=== PATIENT | male | born 1940 | race Caucasian/White ===

== ENCOUNTER → 2019-04-04 | Day surgery (SDC) | payer MEDICARE ==
[2019-04-01 12:06] LABS: BASOPHILS % 0.4 % (0.0-1.0); EOSINOPHILS # (AUTO) 0.2 (0.0-0.4); EOSINOPHILS % 2.3 % (0.0-6.0); HEMATOCRIT 36.7 % (38.2-49.6); LYMPHOCYTES % 21.1 % (18.0-39.1); MEAN CORPUSCULAR HEMOGLOBIN 27.1 pg (28-32); MEAN CORPUSCULAR HGB CONC 32.7 g/dL (31-35); MONOCYTES # (AUTO) 0.8 (0.2-0.8); MONOCYTES % 8.3 % (4.4-11.3); NEUTROPHILS # (AUTO) 6.4 (2.1-6.9); NEUTROPHILS % 67.5 % (38.7-80.0); PLATELET COUNT 270 x10e3/uL (140-360); RED BLOOD COUNT 4.42 x10e6/uL (4.3-5.7); RED CELL DISTRIBUTION WIDTH 13.7 % (11.7-14.4)
[2019-04-01 12:37] LABS: ANION GAP 11.7 mmol/L (8-16); BLOOD UREA NITROGEN 13 mg/dL (7-26); BUN/CREATININE RATIO 14 (6-25); CALCIUM 9.4 mg/dL (8.4-10.2); CARBON DIOXIDE 27 mmol/L (22-29); CHLORIDE 105 mmol/L (98-107); CREATININE, SERUM 0.93 mg/dL (0.72-1.25); EST GLOMERULAR FILTRATION RATE > 60 ML/MIN (60-); GLUCOSE 132 mg/dL (74-118); POTASSIUM 4.7 mmol/L (3.5-5.1); SODIUM 139 mmol/L (136-145)
--- NOTE | 2019-04-01 12:58 | Diagnostic Imaging Report ---
EXAMINATION: CHEST 2 VIEWS INDICATION: Pre-operative COMPARISON: None FINDINGS: TUBES and LINES: None. LUNGS: The lung volumes are normal. No focal consolidation or pulmonary edema. PLEURA: No pleural effusion or pneumothorax. HEART AND MEDIASTINUM: The cardiomediastinal silhouette is normal in size and contour. Atherosclerotic calcifications of the thoracic aorta. BONES AND SOFT TISSUES: No acute fracture or dislocation. Degenerative changes of the visualized spine. UPPER ABDOMEN: No free air under the diaphragm. Moderate hiatal hernia. IMPRESSION: No focal pneumonia or pulmonary edema. Moderate hiatal hernia. Signed by: Mica Moore MD on 04/01/2019 12:55 PM
[~2019-04-04] MED LIST: AMLODIPINE BESYL5 MG PO; ASPIRIN81 MG PO; ATORVASTATIN CA20 MG PO; B&O 60MG R/S 60 MG SUPP PR ONE; DEXAMETHASONE SOD PHOS INJ 4 MG/ML VIAL ONE; FENTANYL CITRATE/PF 100MCG/2 ML INJ ONE; FINASTERIDE5 MG PO; FLOMAX0.4 MG PO; GENTAMICIN 80MG/NS 100 ML 200 ML IV ONE; IOPAMIDOL 610MG/1ML 300 MG/ML VIAL IV ONE; LIDOCAINE HCL 2% LOCAL INJ 5 ML SDV VIAL INJ ONE; LOSARTAN POTASS25 MG PO; METFORMIN HCL500 MG PO; METOPROLOL PO; ONDANSETRON HCL INJ 2MG/ML 2ML 2 MG/ML VIAL ONE; PANTOPRAZOLE SO40 MG PO; PIPER-TAZ 3.375 GM 50 ML ONE; PRADAXA150 MG PO; PROPOFOL IV EMULSION 10 MG/ML 20 ML VIAL ONE; SEVOFLURANE INHAL SOLN 250 ML PEN BTL ONE
--- OUTSIDE RECORDS SUMMARY | 2019-04-04 07:16 | XMS REPORT | Clinical Summary ---
Author Author [facility] Organization [facility] Address Unknown Phone Unavailable Care Team Providers Care Flight Engineer Manager Name Role Phone Asked, No Pcp PCP Unavailable Allergies No Known Allergies Medications End Date Status Medication Sig Dispensed Refills Start Date Active lansoprazole (PREVACID) Take 30 mg by 0 30 MG capsule mouth daily. Active terazosin (HYTRIN) 10 MG Take 10 mg by 0 capsule mouth nightly. Active metFORMIN (GLUCOPHAGE) Take 250 mg 0 500 mg tablet by mouth 2 (two) times a day with meals. Active atorvastatin (LIPITOR) 10 Take 10 mg by 0 MG tablet mouth daily. Active lisinopril Take 10 mg by 0 (PRINIVIL,ZESTRIL) 10 mg mouth daily. tablet Active warfarin (COUMADIN) 1 MG On MWF take 90 tablet 3 02/14/ tablet 2mg, 7 otherwise 3mg the rest of the days Active amIODarone (PACERONE) 200 TAKE 1 TABLET 90 tablet 0 03/05/201 MG tablet BY MOUTH 7 DAILY Active finasteride (PROSCAR) 5 TAKE 1 30 tablet 0 02/08/201 mg tablet TABLET(5 MG) 8 BY MOUTH DAILY Active Problems Problem Noted Date A-fib on coumadin 02/14/2017 CAD (coronary artery disease) 02/14/2017 T2DM (type 2 diabetes mellitus) 02/14/2017 Encounters Care Team Description Date Type Specialty [place]-Beatrice Sandoval MD 04/22/2018 Refill Internal Medicine after 04/03/2018 Family History Medical History Relation Name Comments GERD Father Diabetes Mother Relation Name Status Comments Father Mother Social History Date Tobacco Use Types Packs/Day Years Used Former Smoker Comments: quit in 1960s, smoked up to 1.5ppd since 14 yo Alcohol Use Drinks/Week oz/Week Comments Yes 5 drinks a week or so Sex Assigned at Date Recorded Not on file Industry Job Start Date Occupation Not on file Not on file Not on file Travel End Travel History Travel Start No recent travel history available. Last Filed Vital Signs Not on file Plan of Treatment Health Maintenance Due Date Last Done Comments DIABETIC RETINAL EYE EXAM 1940 DIABETIC FOOT EXAM 1950 SHINGLES VACCINES (#1) 1989 65+ PNEUMOCOCCAL VACCINE 2004 (1 of 2 - PCV13) INFLUENZA VACCINE 04/10/2019 Results Not on fileafter 04/03/2018 Insurance Type Payer Benefit Subscriber ID Effective Phone Address Plan / Dates Group [facility] MEDICARE AARP xxxxxxxxx 2017-P MEDICARE resent COMPLETE [facility] Advance Directives Patient has advance care planning documents on file. For more information, nehemiah purcell contact: Marcelo Sosa [address] [place] [address]
--- OUTSIDE RECORDS SUMMARY | 2019-04-04 07:16 | XMS REPORT ---
Author Author [facility] Address Unknown Phone Unavailable Care Team Providers Care Jackhammer Splitter Operator Name Role Phone JAMIE MENCHACA Unavailable Unavailable Payers Payer Name Policy Type Policy Number Effective Date Expiration Date Problems This patient has no known problems. Allergies, Adverse Reactions, Alerts This patient has no known allergies or adverse reactions. Medications This patient has no known medications. Results Test Description Test Time Test Comments Text Results Atomic Results Result Comments CHEST 2 VIEWS 2019-04-01 12:53:00 [place] [address] Patient Name: AMARI NUNEZ MR #: [id number] : 1940 Age/Sex: 78/M Req #: [id number] Adm Physician: Ordered by: JAMIE MENCHACA MD Report #: [id number] Location: OR Room/Bed: Procedure: [id number] DX/CHEST 2 VIEWS Exam Date: 04/01/19 Exam Time: 1205 REPORT STATUS: Signed EXAMINATION: CHEST 2 VIEWS INDICATION: Pre-operative COMPARISON: None FINDINGS: TUBES and LINES: None. LUNGS: The lung volumes are normal. No focal consolidation or pulmonary edema. PLEURA: No pleural effusion or pneumothorax. HEART AND MEDIASTINUM: The cardiomediastinal silhouette is normal in size and contour. Atherosclerotic calcifications of the thoracic aorta. BONES AND SOFT TISSUES: No acute fracture or dislocation. Degenerative changes of the visualized spine. UPPER ABDOMEN: No free air under the diaphragm. Moderate hiatal hernia. IMPRESSION: No focal pneumonia or pulmonary edema. Moderate hiatal hernia. Signed by: Dexter Moore MD on 04/01/2019 12:55 PM Dictated By: DEXTER MOORE MD [id number] Transcribed By: COOPER on 04/01/19 1255 COPY TO: JAMIE MENCHACA MD
[2019-04-04 11:45] VITALS: BP 156/74
--- NOTE | 2019-06-05 05:18 | Operative Report ---
DATE OF PROCEDURE: 04/04/2019 SURGEON: Bud Sanchez MD PREOPERATIVE DIAGNOSES: 1. Elevated PSA. 2. Incomplete bladder emptying. POSTOPERATIVE DIAGNOSES: 1. Elevated PSA. 2. Incomplete bladder emptying. 3. Urethral stricture disease. OPERATION PERFORMED: 1. Transrectal sonography interpretation, no radiologist present. 2. Interpretation of ultrasonographic guidance for needle biopsies of the prostate, but no radiologist present. 3. Transrectal needle biopsies of the prostate (surgery performed for the elevated PSA). 4. Cystourethroscopy with bilateral ureteral catheterization and retrograde ureteropyelography (surgery performed for the incomplete bladder emptying). 5. Interpretation of retrograde ureteropyelography. 6. Supervision of fluoroscopy, no radiologist present. 7. Cystourethroscopy with calibration and dilation of urethral stricture disease just distal to the external urinary sphincter. ANESTHESIA: General. COMPLICATIONS: None. CLINICAL SUMMARY: Emmanuel Rinaldi is a 78-year-old man with the above preoperative diagnoses. He has undergone prostate biopsies on five different occasions in the past without any diagnosis of cancer. The patient was brought for the above procedures. He is aware of the risks of bleeding, infection, injury to adjacent structures, need for additional procedures and elected to proceed. OPERATIVE PROCEDURE IN DETAIL: Informed consent was verified. Emmanuel Rinaldi was properly identified and was taken to the operating room and placed on the cystoscopy table in supine position. Anesthesia was uneventfully begun. The patient was then carefully gently repositioned in dorsal lithotomy position with over all pressure points well padded. Transrectal sonography was performed. Interpretation of transrectal sonography, real-time ultrasonography was performed and revealed the prostate size approximately 107 cc. There were calcifications noted on both sides of the prostate, left more prominent than the right side. There were no hypoechoic lesions to account for the preultrasound examination. That examination revealed a 50 g prostate that was indurated on the left side more than it was indurated on the right side, but it was abnormal bilaterally. There were no distinct nodules, but induration was present. With ultrasonographic guidance, the 18 needle biopsies of the prostate were taken. Three biopsies were taken at each of six locations. These were differentiated right versus left and base versus mid versus apex. The patient's genitalia were then prepared and draped in the usual sterile fashion. The cystoscope sheath with a visual obturator in place was atraumatically inserted. The patient's urethra was guided on a normal distal urethra to the bulbar region, where there was a stricture present just beyond the external urinary sphincter. We gently dilated across the stricture to the cystoscope sheath, thus calibrating and dilating it at 21-Indonesian. We then traversed through the large prostate. The prostatic urethra was long and very large with kissing lateral lobes with severe visual obstruction. We entered the patient's bladder and drained it. Panendoscopy of the urinary bladder revealed grade 2 trabeculations, but no tumors, no stones, and no diverticula normally positioned configured. Ureteral orifices were identified. An 8-Indonesian catheter was used to cannulate each ureter and retrograde ureteropyelograms were performed. Interpretation of retrograde ureteropyelography contrast was instilled in retrograde fashion bilaterally. There were no tumors and there were no stones. J-hooking was present bilateral. Unobstructed drainage was observed fluoroscopically. The patient's bladder was drained. Cystoscope was withdrawn. Belladonna and opium suppository were placed. The patient was uneventfully reversed from anesthesia and was taken to recovery room in stable condition. Explicit postoperative instructions were given and we will plan to follow the patient up in the office. Regardless, the patient based on the cystoscopic findings is in need of undergoing transurethral resection of the prostate. Bud Sanchez MD OH/MODL /[id number] cc: Jeanmarie Gill MD
== END | disposition home or self-care (01) ==
LOC: OR 07:14
PROVIDERS: ATTEND Urology
DX: R97.20 Elevated prostate specific antigen [PSA] (principal); R33.9 Retention of urine, unspecified; N35.812 Other bulbous urethral stricture, male; Z01.810 Encounter for preprocedural cardiovascular examination; Z01.812 Encounter for preprocedural laboratory examination; Z01.811 Encounter for preprocedural respiratory examination; K21.9 Gastro-esophageal reflux disease without esophagitis; K44.9 Diaphragmatic hernia without obstruction or gangrene; N40.0 Benign prostatic hyperplasia without lower urinary tract symptoms; E11.51 Type 2 diabetes mellitus with diabetic peripheral angiopathy without gangrene; I48.91 Unspecified atrial fibrillation; I25.10 Atherosclerotic heart disease of native coronary artery without angina pectoris; Z95.5 Presence of coronary angioplasty implant and graft; I25.2 Old myocardial infarction; I10 Essential (primary) hypertension; Z79.84 Long term (current) use of oral hypoglycemic drugs; Z87.891 Personal history of nicotine dependence
CPT/HCPCS: 36415 ×2; 52281; 55700; 71046; 74420; 76872; 76942; 80048; 82948; 85025; 88305; 93005; C1758; J1100; J1580; J2001; J2405; J2543; J2704; J3010; Q9967; 76998

== ENCOUNTER 2019-07-08 13:05 | Emergency (ER) | payer MEDICARE ==
[~2019-07-08] VITALS: Ht 175.3 cm; Wt 81.6 kg
[~2019-07-08 13:05] MED LIST changes: -B&O 60MG R/S 60 MG SUPP PR ONE; -DEXAMETHASONE SOD PHOS INJ 4 MG/ML VIAL ONE; -FENTANYL CITRATE/PF 100MCG/2 ML INJ ONE; -GENTAMICIN 80MG/NS 100 ML 200 ML IV ONE; -IOPAMIDOL 610MG/1ML 300 MG/ML VIAL IV ONE; -LIDOCAINE HCL 2% LOCAL INJ 5 ML SDV VIAL INJ ONE; -ONDANSETRON HCL INJ 2MG/ML 2ML 2 MG/ML VIAL ONE; -PIPER-TAZ 3.375 GM 50 ML ONE; -PROPOFOL IV EMULSION 10 MG/ML 20 ML VIAL ONE; -SEVOFLURANE INHAL SOLN 250 ML PEN BTL ONE
[2019-07-08 14:28] LABS: BILIRUBIN,URINE NEGATIVE (NEGATIVE); CLARITY,URINE CLOUDY (CLEAR); COLOR,URINE ORANGE (YELLOW); KETONES,URINE NEGATIVE (NEGATIVE); LEUKOCYTE ESTERASE ,URINE TRACE (NEGATIVE); NITRITE,URINE POSITIVE (NEGATIVE); PROTEIN,URINE DIPSTICK 1+ (NEGATIVE); URINE UROBILINOGEN 1 mg/dL (0.2 - 1)
[2019-07-08 14:58] LABS: BACTERIA,URINE MODERATE /HPF; RBC,URINE 0-5 /HPF (0-5)
== END 2019-07-08 15:38 | disposition home or self-care (01) ==
LOC: ER 13:05
DX: N39.0 Urinary tract infection, site not specified (principal); I10 Essential (primary) hypertension; E11.9 Type 2 diabetes mellitus without complications; I25.10 Atherosclerotic heart disease of native coronary artery without angina pectoris; K21.9 Gastro-esophageal reflux disease without esophagitis; I25.2 Old myocardial infarction; Z85.46 Personal history of malignant neoplasm of prostate
CPT/HCPCS: 81001; 87086; 99282

== ENCOUNTER 2020-08-11 08:06 | Inpatient (IN) | payer MEDICARE ==
[2020-08-09 10:19] LABS: BASOPHILS # (AUTO) 0.1 (0.0-0.1); BASOPHILS % 0.4 % (0.0-1.0); EOSINOPHILS # (AUTO) 0.3 (0.0-0.4); EOSINOPHILS % 2.2 % (0.0-6.0); HEMATOCRIT 35.8 % (38.2-49.6); HEMOGLOBIN 11.3 g/dL (14.0-18.0); LYMPHOCYTES # (AUTO) 2.3 (1.0-3.2); LYMPHOCYTES % 19.3 % (18.0-39.1); MEAN CORPUSCULAR HEMOGLOBIN 26.4 pg (28-32); MEAN CORPUSCULAR HGB CONC 31.6 g/dL (31-35); MEAN CORPUSCULAR VOLUME 83.6 fL (81-99); NEUTROPHILS # (AUTO) 8.4 (2.1-6.9); NEUTROPHILS % 69.7 % (38.7-80.0); PLATELET COUNT 307 x10e3/uL (140-360); RED BLOOD COUNT 4.28 x10e6/uL (4.3-5.7); RED CELL DISTRIBUTION WIDTH 14.2 % (11.7-14.4)
[2020-08-09 10:42] LABS: ANION GAP 16.6 mmol/L (8-16); BLOOD UREA NITROGEN 12 mg/dL (7-26); BUN/CREATININE RATIO 13 (6-25); CALCIUM 9.2 mg/dL (8.4-10.2); CARBON DIOXIDE 21 mmol/L (22-29); CHLORIDE 107 mmol/L (98-107); CREATININE, SERUM 0.94 mg/dL (0.72-1.25); EST GLOMERULAR FILTRATION RATE > 60 ML/MIN (60-); GLUCOSE 127 mg/dL (74-118); POTASSIUM 4.6 mmol/L (3.5-5.1); SODIUM 140 mmol/L (136-145)
--- NOTE | 2020-08-09 10:57 | Diagnostic Imaging Report ---
EXAMINATION: CHEST 2 VIEWS INDICATION: Pre-operative COMPARISON: Chest radiograph 04/01/2019 FINDINGS: LINES/TUBES:Left chest pacer. LUNGS:The lungs are well-inflated. No focal consolidation or pulmonary edema. 13 mm right lower lung nodular opacity was not present on the chest radiograph from 04/01/2019. PLEURA:No pleural effusion or pneumothorax. MEDIASTINUM:The cardiomediastinal silhouette appears normal in size and shape. Atherosclerotic calcifications of the thoracic aorta. BONES/SOFT TISSUES:No acute osseous injury. ABDOMEN:No free air under the diaphragm. IMPRESSION: No focal pneumonia or pulmonary edema. 13 mm right lower lung nodular opacity, new from 04/01/2019. Recommend chest CT for further evaluation on a nonurgent outpatient basis. Signed by: Mica Moore MD on 08/09/2020 10:54 AM
[~2020-08-11] VITALS: Ht 175.3 cm; Wt 77.1 kg
[2020-08-11] MEDS ORDERED: CEFTRIAXONE SOD 1 GM/NS 50 ML 50 ML IV ONE (08:35)
[2020-08-11] MEDS ORDERED: GENTAMICIN 80MG/NS 100 ML 100 ML IV ONE (08:35)
[2020-08-11] MEDS ORDERED: SODIUM CHLORIDE 0.9% 1000ML 1,000 ML ONE (08:35)
[2020-08-11] MEDS ORDERED: IOPAMIDOL 300MG/ML 50ML INFUS..BTL IV ONE (09:47)
[2020-08-11] MEDS ORDERED: B&O 60MG R/S 60 MG SUPP PR ONE (09:47)
[2020-08-11] MEDS ORDERED: DIPHENHYDRAMINE HCL 25 MG CAP PO PRN (11:45)
[2020-08-11] MEDS ORDERED: B&O 60MG R/S 60 MG SUPP PR PRN (11:45)
[2020-08-11] MEDS ORDERED: ONDANSETRON HCL INJ 2MG/ML 2ML 2 MG/ML VIAL IV PRN (11:45)
--- OUTSIDE RECORDS SUMMARY | 2020-08-11 11:57 | XMS REPORT | Clinical Summary ---
Author Author [facility] Organization [facility] Address Unknown Phone Unavailable Care Team Providers Care Estimator Lumber Name Role Phone Asked, No Pcp PCP Unavailable Allergies No Known Active Allergies Medications End Date Status Medication Sig [...] MG On MWF take 90 tablet 3 0 tablet 2mg, 7 otherwise 3mg the rest of the days Active amIODarone (PACERONE) 200 TAKE 1 TABLET 90 tablet 0 03/05/201 MG tablet BY MOUTH 7 DAILY Active finasteride (PROSCAR) 5 TAKE 1 30 tablet 0 /201 mg tablet TABLET(5 MG) 8 BY MOUTH DAILY Active Problems Problem Noted Date A-fib on coumadin 02/14/2017 CAD (coronary artery disease) 02/14/2017 T2DM (type 2 diabetes mellitus) 02/14/2017 Surgical History Surgery Date Site/Laterality Comments HERNIA REPAIR b/l groin CORONARY STENT PLACEMENT 09/10/2014 - x2 09/09/2015 FOOT NEUROMA SURGERY Right Medical History Medical History Date Comments Hyperlipidemia Hypertension A-fib (HCC) CAD (coronary artery disease) GERD (gastroesophageal reflux disease) BPH (benign prostatic hypertrophy) T2DM (type 2 diabetes mellitus) (HCC) around 2014 or so Basal cell carcinoma face and back Family History Medical History Relation Name Comments GERD Father Diabetes Mother Relation Name Status Comments Father Mother Social History Date Tobacco Use Types Packs/Day Years Used Former Smoker Comments: quit in 1960s, smoked up to 1. 5ppd since 14 yo Drinks/Week oz/Week Comments Alcohol Use 5 drinks a week or s o Yes Sex Assigned at Date Recorded Not on file Last Filed Vital Signs Not on file Plan of Treatment Health Maintenance Due Date Last Done Comments SHINGLES VACCINES (#1) 1989 65+ PNEUMOCOCCAL VACCINE 2004 (1 of 1 - PPSV23) INFLUENZA VACCINE 04/10/2020 Results Not on fileafter 08/11/2019 Insurance Type Payer Benefit Subscriber ID Effective Phone Address Plan / Dates Group [facility] MEDICARE AARP [id number] 2017-P MEDICARE resent COMPLETE [facility] Advance Directives For more information, please contact: [phone] Patient Chief Substation Operator Explanation Type Date Recorded Advance Directives, Living Will and Medical Power of Delivery Mgr
--- OUTSIDE RECORDS SUMMARY | 2020-08-11 11:58 | XMS REPORT | Continuity of Care Document ---
Author Author [facility] t Organization [facility] Address [address] [place] [address] Phone Unavailable Care Team Providers Care Carbon Brush Maker Name Role Phone BREANNA CANADA, Peter BATEMAN PCP HAMPEL, JAMIE Attphys Unavailable Doctor Unassigned, Name No Attphys Unavailable Mike DUDLEY, Judy Attphys Aidan CANADA, Debi Attphys Isai Levy MD Attphys Lab, - [facility] Attphys Unavailable Isai Levy MD Admphys Payers Payer Name Policy Type Policy Number Effective Date Expiration Date S ource Problems Condition Name Condition Details Condition Category Status Onset Date Resolution Date Last Treatment Date Treating Clinician Comments Source A-fib on coumadin A-fib on coumadin Disease Active 2017-02-14 00:00:00 Marcelo Sosa CAD (coronary artery disease) CAD (coronary artery disease) Disease Active 2017-02-14 00:00:00 Marcelo Sosa T2DM (type 2 diabetes mellitus) T2DM (type 2 diabetes mellitus) Dis ease Active 2017-02-14 00:00:00 Marcelo Sosa Allergies, Adverse Reactions, Alerts Allergy Name Allergy Type Status Severity Reaction(s) Onset Date Inacti ve Date Treating Clinician Comments Source No Known Allergies DA Active U 2020-01-27 00:00:00 [facility] Family History Family Member Diagnosis Comments Start Date Stop Date Source Natural father GERD Marcelo Me thodist Natural mother Diabetes Marcelo Me thodist Social History Social Habit Start Date Stop Date Quantity Comments Source Sex Assigned At Diana alvarez Ian Alcohol intake 2017-02-14 00:00:00 2017-02-14 00:00:00 Current drinker of alcohol (finding) Marcelo Sosa Tobacco Comment 2017-02-14 00:00:00 2017-02-14 00:00:00 quit in 1960s, smoked up to 1.5ppd since 14 yo Marcelo Sosa Alcohol Comment 2017-02-14 00:00:00 2017-02-14 00:00:00 5 drinks a we ek or so Marcelo Sosa Smoking Status Start Date Stop Date Source Former smoker 2017-02-14 00:00:00 2017-02-14 00:00:00 Marcelo Sosa Medications Ordered Medication Name Filled Medication Name Start Date Stop Da te Current Medication? Ordering Clinician Indication Dosage Frequency Signature (SIG) Comments Components Source finasteride (PROSCAR) 5 mg tablet 2018-02-08 00:00:00 Yes TAKE 1 TABLET(5 MG) BY MOUTH DAILY Marcelo baum amIODarone (PACERONE) 200 MG tablet 2017-03-05 00:00:00 Yes TAKE 1 TABLET BY MOUTH DAILY Marcelo Sosa metFORMIN (GLUCOPHAGE) 500 mg tablet 2017-02-14 10:39:26 Ye s 250mg Q.5D Take 250 mg by mouth 2 (two) times a day with meals. Marcelo Sosa atorvastatin (LIPITOR) 10 MG tablet 2017-02-14 10:18:34 Yes 10mg QD Take 10 mg by mouth daily. Marcelo Sosa lisinopril (PRINIVIL,ZESTRIL) 10 mg tablet 2017-02-14 10:18:34 Yes 10mg QD Take 10 mg by mouth daily. Keith Sosa lansoprazole (PREVACID) 30 MG capsule 2017-02-14 10:16:16 Y es 30mg QD Take 30 mg by mouth daily. Marcelo singh terazosin (HYTRIN) 10 MG capsule 2017-02-14 10:16:16 Yes 10mg QD Take 10 mg by mouth nightly. Marcelo Sosa warfarin (COUMADIN) 1 MG tablet 2017-02-14 00:00:00 Yes On MWF take 2mg, otherwise 3mg the rest of the days Marcelo Sosa Amlodipine Besylate 5 Mg Tablet Amlodipine Besylate 5 Mg Tablet Yes 5 Daily [facility] Aspirin 81 Mg Tab.chew Aspirin 81 Mg Tab.chew Yes 81 Daily [facility] Atorvastatin Calcium 20 Mg Tablet Atorvastatin Calcium 20 Mg Tablet Yes 40 Bedtime [facility] Dabigatran Etexilate Mesylate (Pradaxa) 150 Mg Capsule Dabigatran Etexilate Mesylate (Pradaxa) 150 Mg Capsule Yes 150 Twic e A Day [facility] Finasteride 5 Mg Tablet Finasteride 5 Mg Tablet Yes 5 Daily [facility] Losartan Potassium 25 Mg Tablet Losartan Potassium 25 Mg Tablet Yes 25 Daily [facility] Metformin Hcl 500 Mg Tablet Metformin Hcl 500 Mg Tablet Yes 500 Twice A Day [facility] Metoprolol Metoprolol Yes 25 Twice A Day [facility] Pantoprazole Sodium (Protonix) 40 Mg Tablet. Pantopr azole Sodium (Protonix) 40 Mg Tablet. Yes 40 Daily [facility] Tamsulosin Hcl (Flomax*) 0.4 Mg Cap Tamsulosin Hcl (Flomax*) 0.4 Mg C ap Yes .4 Bedtime [facility] Procedures Procedure Date / Time Performed Performing Clinician [facility] e Dissection of lymph nodes of pelvis 2019-06-30 00:00:00 [facility] CYSTOSCOPY AND TREATMENT 2019-04-04 00:00:00 [facility] BIOPSY OF PROSTATE 2019-04-04 00:00:00 [facility] Intraoperative ultrasound 2019-04-04 00:00:00 [facility] I [facility] Ultrasound of prostate with transrectal approach 2019-04-04 00:00:00 [facility] X-ray of chest, two views 2019-04-01 00:00:00 JAMIE SANCHEZ CH, I [facility] Plan of Care Planned Activity Planned Date Details Comments Source Future Scheduled Test 2020-04-10 00:00:00 INFLUENZA VACCINE [code = INFLUENZA VACCINE] [facility] Future Scheduled Test 2004 00:00:00 65+ PNEUMOCOCCAL V ACCINE (1 of 1 - PPSV23) [code = 65+ PNEUMOCOCCAL VACCINE (1 of 1 - PPSV23)] [facility] Future Scheduled Test 1989 00:00:00 SHINGLES VACCINES (#1) [code = SHINGLES VACCINES (#1)] [facility] Encounters Start Date/Time End Date/Time En[facility] En[facility] ID Source 2020-06-09 00:00:00 2020-06-09 00:00:00 Orders Only D octor Unassigned, [place] [facility] [id number] 2020-06-08 00:00:00 2020-06-08 00:00:00 Transition of Care Judy Mckeon Jose Escobar [id number] 2020-06-07 00:00:00 2020-06-07 00:00:00 Transition of Care Mike Judy Cyndirosemary Escobar [id number] 2020-06-03 14:31:00 2020-06-05 13:25:00 Hospital Encounter Debi Bermudez [facility] ([facility]) [id number] 2020-06-03 00:00:00 2020-06-03 00:00:00 Orders Only D octor Unassigned, [place] [facility] [id number] 2020-05-31 10:08:54 2020-05-31 10:23:54 Early Childhood Education Coordinator Visit Mandy dalton, Tarah [facility] ([facility]) [id number] 2019-07-08 13:05:00 2019-07-08 15:38:00 Departed Emergency Room [facility] [id number] [facility] 2019-06-30 15:02:00 2019-07-02 18:35:00 Discharged Inpatient [facility] [id number] [facility] 2019-04-04 07:14:00 2019-04-04 07:14:00 Registered Surgical Day Car e 3 JAMIE SANCHEZ [facility] [id number] [facility] Results Test Description Test Time Test Comments Results Result Comments Source CHEST 2 VIEWS 2020-08-09 10:53:00 [facility] 1940 Sex: [place] [address] Patient Name: AMARI RINALDI MR #: [id number] : 1940 Age/Sex: 79/M Req #: [id number] Adm Physician: Ordered by: JAMIE SANCHEZ MD Report #: [id number] Location: OR Room/Bed: Procedure: [id number] DX/CHEST 2 VIEWS Exam Date: 08/09/20 Exam Time: 1036 REPORT STATUS: Signed EXAMINATION: CHEST 2 VIEWS INDICATION: Pre-operative COMPARISON: Chest radiograph 04/01/2019 FINDINGS: LINES/TUBES:Left chest pacer. LUNGS:The lungs are well- inflated. No focal consolidation or pulmonary edema. 13 mm right lower lung nodular opacity was not present on the chest radiograph from 04/01/2019. PLEURA:No pleural effusion or pneumothorax. MEDIASTINUM:The cardiomediastinal silhouette appears normal in size and shape. Atherosclerotic calcifications of the thoracic aorta. BONES/SOFT TISSUES:No acute osseous injury. ABDOMEN:No free air under the diaphragm. IMPRESSION: No focal pneumonia or pulmonary edema. 13 mm right lower lung nodular opacity, new from 04/01/2019. Recommend chest CT for further evaluation on a nonurgent outpatient basis. Signed by: Dexter Zendejas MD on 08/09/2020 10:54 AM Dictated By: DEXTER ZENDEJAS MD 1054 Transcribed By: COOPER on 08/09/20 1054 COPY TO: JAMIE SANCHEZ MD GLUBED 2020-05-23 17:58:00 Test Item GLUBED (test code = GLUBED) 108 MG/DL 70-110 N Performed by certified wafer fabrication operator at [facility] [id number] 12:48:00* Test Item Value Reference Range Interpretation Comments GLUBED (test code = GLUBED) 120 MG/DL 70-110 H Performed by certified wafer fabrication operator at [facility] [id number] 08:43:00* Test Item Value Reference Range Interpretation Comments GLUBED (test code = GLUBED) 122 MG/DL 70-110 H Performed by certified wafer fabrication operator at [facility] COMPREHENSIVE METABOLIC [id number] 04:45:00* Test Item Value Reference Range Interpretation Comments SODIUM (test code = NA) 141 mEq/L 134-147 N POTASSIUM (test code = K) 4.3 mEq/L 3.4-5.0 N CHLORIDE (test code = CL) 112 mEq/L 100-108 H CARBON DIOXIDE (test code = CO2) 25 mEq/L 21-33 ANION GAP (test code = GAP) 8 0-20 N GLUCOSE (test code = GLU) 133 mg/dL 70-110 H BLOOD UREA NITROGEN (test code = BUN) 19 mg/dL 7-18 H GLOMERULAR FILTRATION RATE (test code = GFR) 81.2 70-80 H Units of measure = ml/min/1.73 m2 CREATININE (test code = CREAT) 0.9 mg/dL 0.6-1.3 N TOTAL PROTEIN (test code = PROT) 6.1 g/dL 6.4-8.2 L ALBUMIN (test code = ALB) 3.40 g/dL 3.4-5.0 N CALCIUM (test code = CA) 9.3 mg/dL 8.0-10.5 N BILIRUBIN TOTAL (test code = BILT) 0.50 mg/dL 0.0-1.0 N SGOT/AST (test code = AST) 25 IUnit/L 15-37 N SGPT/ALT (test code = ALT) 34 IUnit/L 30-65 N ALKALINE PHOSPHATASE TOTAL (test code = ALKP) 45 IUnit/L 20-125 N [id number] 04:45:00* Test Item Value Reference Range Interpretation Comments PHOSPHOROUS (test code = PHOS) 3.5 MG/DL 2.5-4.9 [id number] 04:45:00* Test Item Value Reference Range Interpretation Comments MAGNESIUM (test code = MAG) 2.08 mg/dL 1.8-2.4 N CBC W/AUTO [id number] 04:32:00* Test Item Value Reference Range Interpretation Comments WHITE BLOOD CELL (test code = WBC) 11.33 x10 3/uL 4.5-11.0 H RED BLOOD CELL (test code = RBC) 3.63 x10 6/uL 4.00-5.60 L HEMOGLOBIN (test code = HGB) 10.1 g/dL 12.5-16.9 L HEMATOCRIT (test code = HCT) 32.4 % 37.5-50.7 L MEAN CELL VOLUME (test code = MCV) 89.3 fL 81.0-99.0 N MEAN CELL HGB (test code = MCH) 27.8 pg 27.0-33.0 N MEAN CELL HGB CONCETRATION (test code = MCHC) 31.2 g/dL 33.0-37. 0 L RED CELL DISTRIBUTION WIDTH CV (test code = RDW) 14.5 % 11.5- 14.5 N RED CELL DISTRIBUTION WIDTH SD (test code = RDW-SD) 47.3 fL 37 .0-54.0 N PLATELET COUNT (test code = PLT) 272 x10 3/uL 150-400 N MEAN PLATELET VOLUME (test code = MPV) 9.9 fL 7.0-9.0 H NEUTROPHIL % (test code = NT%) 57.1 % 56.0-77.0 N IMMATURE GRANULOCYTE % (test code = IG%) 0.4 % 0.0-2.0 N LYMPHOCYTE % (test code = LY%) 28.1 % 14.0-32.0 N MONOCYTE % (test code = MO%) 9.5 % 4.8-9.0 H EOSINOPHIL % (test code = EO%) 4.5 % 0.3-3.7 H BASOPHIL % (test code = BA%) 0.4 % 0.0-2.0 N NUCLEATED RBC % (test code = NRBC%) 0.0 % 0-0 N NEUTROPHIL # (test code = NT#) 6.47 x10 3/uL 2.0-7.6 N IMMATURE GRANULOCYTE # (test code = IG#) 0.04 x10 3/uL 0.00-0.03 H LYMPHOCYTE # (test code = LY#) 3.18 x10 3/uL 1.0-3.8 N MONOCYTE # (test code = MO#) 1.08 x10 3/uL 0.1-0.8 H EOSINOPHIL # (test code = EO#) 0.51 x10 3/uL 0.0-0.2 H BASOPHIL # (test code = BA#) 0.05 x10 3/uL 0.0-0.2 N NUCLEATED RBC # (test code = NRBC#) 0.00 x10 3/uL 0.0-0.1 N MANUAL DIFF REQUIRED (test code = MDIFF) NO [id number] 21:47:00* Test Item Value Reference Range Interpretation Comments GLUBED (test code = GLUBED) 175 MG/DL 70-110 H Performed by certified wafer fabrication operator at [facility] [id number] 17:55:00* Test Item Value Reference Range Interpretation Comments GLUBED (test code = GLUBED) 189 MG/DL 70-110 H Performed by certified wafer fabrication operator at [facility] BASIC METABOLIC [id number] 12:35:00* Test Item Value Reference Range Interpretation Comments SODIUM (test code = NA) 141 mEq/L 134-147 N POTASSIUM (test code = K) 3.9 mEq/L 3.4-5.0 N CHLORIDE (test code = CL) 110 mEq/L 100-108 H CARBON DIOXIDE (test code = CO2) 18 mEq/L 21-33 L ANION GAP (test code = GAP) 17 0-20 N GLUCOSE (test code = GLU) 224 mg/dL 70-110 H BLOOD UREA NITROGEN (test code = BUN) 14 mg/dL 7-18 N GLOMERULAR FILTRATION RATE (test code = GFR) 71.9 70-80 N Units of measure = ml/min/1.73 m2 CREATININE (test code = CREAT) 1.0 mg/dL 0.6-1.3 N CALCIUM (test code = CA) 8.1 mg/dL 8.0-10.5 N [id number] 12:35:00* Test Item Value Reference Range Interpretation Comments PHOSPHOROUS (test code = PHOS) 2.7 MG/DL 2.5-4.9 N [id number] 12:35:00* Test Item Value Reference Range Interpretation Comments MAGNESIUM (test code = MAG) 1.89 mg/dL 1.8-2.4 N [id number] 12:35:00* Test Item Value Reference Range Interpretation Comments TROPONIN-I (test code = TROPI) 0.018 ng/mL 0.000-0.045 N Negative: <= 0.045 Positive: >= 0.046 Correlation with serial results, other cardiac markers andclinical findings is necessary to determine the clinicalsignificance of this result. Results using different methodologies should not be comparedto one another as quantitative results may vary by method. - XR CHEST 1 [id number] 12:16:00 FAX: Daniel MaximinoJose De Jesus [phone] [place]: St: PRE FAX: Alphonse Gudino [phone] Name: AMARI RINALDI [facility] : 1940 Age/S: 79/M [address] [place] [address] Unit #: [id number] Loc: [address] [address] Phys: MaximinoJose De Jesus Acct: [id number] Dis Date: Status: PRE ER PHONE #: [phone] Exam Date: 05/22/2020 1200 FAX #: [phone] Reason: Chest Pain EXAMS: CPT CODE: [id number] XR CHEST 1 V 03096 PROCEDURE: CHEST SINGLE VIEW INDICATION: Chest pain COMPARISON: 03/25/2020 FINDINGS: The lungs are clear. No pleural abnormality. The cardiac silhouette is normal for projection. Coronary arterial stent. Retrocardiac opacity with convex right and left margins compatible with hiatal hernia. There is calcified plaque in the thoracic aorta. The pulmonary vasculature is normal. There are chronic healed right-sided rib fractures. There is no acute skeletal abnormality. IMPRESSION: 1. No acute findings. 2. Coronary arterial stent. 3. Hiatal hernia. SL: [id number] at 1216 Reported and signed by: Dax Sainz M.D. CC: Jose De Jesus Stanton DO; Alphonse Gill Technologist: RT Marcia(Kimberly) Trnscjoycelyn Date/Time/By: 05/22/2020 (1216) : By: Felipa Orig Print D/T: S: 05/22/2020 (7509) PAGE 1 Signed Report CBC W/AUTO [id number] 11:48:00* Test Item Value Reference Range Interpretation Comments WHITE BLOOD CELL (test code = WBC) 11.52 x10 3/uL 4.5-11.0 H RED BLOOD CELL (test code = RBC) 3.92 x10 6/uL 4.00-5.60 L HEMOGLOBIN (test code = HGB) 10.8 g/dL 12.5-16.9 L HEMATOCRIT (test code = HCT) 34.7 % 37.5-50.7 L MEAN CELL VOLUME (test code = MCV) 88.5 fL 81.0-99.0 N MEAN CELL HGB (test code = MCH) 27.6 pg 27.0-33.0 N MEAN CELL HGB CONCETRATION (test code = MCHC) 31.1 g/dL 33.0-37. 0 L RED CELL DISTRIBUTION WIDTH CV (test code = RDW) 14.3 % 11.5- 14.5 N RED CELL DISTRIBUTION WIDTH SD (test code = RDW-SD) 46.1 fL 37 .0-54.0 N PLATELET COUNT (test code = PLT) 288 x10 3/uL 150-400 N MEAN PLATELET VOLUME (test code = MPV) 10.2 fL 7.0-9.0 H NEUTROPHIL % (test code = NT%) 77.1 % 56.0-77.0 H IMMATURE GRANULOCYTE % (test code = IG%) 0.5 % 0.0-2.0 N LYMPHOCYTE % (test code = LY%) 14.5 % 14.0-32.0 N MONOCYTE % (test code = MO%) 6.4 % 4.8-9.0 N EOSINOPHIL % (test code = EO%) 1.2 % 0.3-3.7 N BASOPHIL % (test code = BA%) 0.3 % 0.0-2.0 N NUCLEATED RBC % (test code = NRBC%) 0.0 % 0-0 N NEUTROPHIL # (test code = NT#) 8.88 x10 3/uL 2.0-7.6 H IMMATURE GRANULOCYTE # (test code = IG#) 0.06 x10 3/uL 0.00-0.03 H LYMPHOCYTE # (test code = LY#) 1.67 x10 3/uL 1.0-3.8 N MONOCYTE # (test code = MO#) 0.74 x10 3/uL 0.1-0.8 N EOSINOPHIL # (test code = EO#) 0.14 x10 3/uL 0.0-0.2 N BASOPHIL # (test code = BA#) 0.03 x10 3/uL 0.0-0.2 N NUCLEATED RBC # (test code = NRBC#) 0.00 x10 3/uL 0.0-0.1 N MANUAL DIFF REQUIRED (test code = MDIFF) NO [id number] 16:40:00* Test Item Value Reference Range Interpretation Comments GLUBED (test code = GLUBED) 139 MG/DL 70-110 H Performed by certified wafer fabrication operator at [facility] [id number] 12:10:00* Test Item Value Reference Range Interpretation Comments GLUBED (test code = GLUBED) 137 MG/DL 70-110 H Performed by certified wafer fabrication operator at [facility] CBC W/AUTO [id number] 08:56:00* Test Item Value Reference Range Interpretation Comments WHITE BLOOD CELL (test code = WBC) 11.30 x10 3/uL 4.5-11.0 H RED BLOOD CELL (test code = RBC) 3.72 x10 6/uL 4.00-5.60 L HEMOGLOBIN (test code = HGB) 10.4 g/dL 12.5-16.9 L HEMATOCRIT (test code = HCT) 32.7 % 37.5-50.7 L MEAN CELL VOLUME (test code = MCV) 87.9 fL 81.0-99.0 N MEAN CELL HGB (test code = MCH) 28.0 pg 27.0-33.0 N MEAN CELL HGB CONCETRATION (test code = MCHC) 31.8 g/dL 33.0-37. 0 L RED CELL DISTRIBUTION WIDTH CV (test code = RDW) 13.7 % 11.5- 14.5 N RED CELL DISTRIBUTION WIDTH SD (test code = RDW-SD) 44.1 fL 37 .0-54.0 N PLATELET COUNT (test code = PLT) 253 x10 3/uL 150-400 N MEAN PLATELET VOLUME (test code = MPV) 10.8 fL 7.0-9.0 H NEUTROPHIL % (test code = NT%) 58.6 % 56.0-77.0 N IMMATURE GRANULOCYTE % (test code = IG%) 0.4 % 0.0-2.0 N LYMPHOCYTE % (test code = LY%) 28.0 % 14.0-32.0 N MONOCYTE % (test code = MO%) 9.4 % 4.8-9.0 H EOSINOPHIL % (test code = EO%) 3.1 % 0.3-3.7 N BASOPHIL % (test code = BA%) 0.5 % 0.0-2.0 N NUCLEATED RBC % (test code = NRBC%) 0.0 % 0-0 N NEUTROPHIL # (test code = NT#) 6.62 x10 3/uL 2.0-7.6 N IMMATURE GRANULOCYTE # (test code = IG#) 0.05 x10 3/uL 0.00-0.03 H LYMPHOCYTE # (test code = LY#) 3.16 x10 3/uL 1.0-3.8 N MONOCYTE # (test code = MO#) 1.06 x10 3/uL 0.1-0.8 H EOSINOPHIL # (test code = EO#) 0.35 x10 3/uL 0.0-0.2 H BASOPHIL # (test code = BA#) 0.06 x10 3/uL 0.0-0.2 N NUCLEATED RBC # (test code = NRBC#) 0.00 x10 3/uL 0.0-0.1 N MANUAL DIFF REQUIRED (test code = MDIFF) NO [id number] 08:30:00* Test Item Value Reference Range Interpretation Comments GLUBED (test code = GLUBED) 126 MG/DL 70-110 H Performed by certified wafer fabrication operator at [facility] BASIC METABOLIC [id number] 08:21:00* Test Item Value Reference Range Interpretation Comments SODIUM (test code = NA) 144 mEq/L 134-147 N POTASSIUM (test code = K) 3.6 mEq/L 3.4-5.0 N CHLORIDE (test code = CL) 113 mEq/L 100-108 H CARBON DIOXIDE (test code = CO2) 23 mEq/L 21-33 N ANION GAP (test code = GAP) 12 0-20 N GLUCOSE (test code = GLU) 109 mg/dL 70-110 N BLOOD UREA NITROGEN (test code = BUN) 18 mg/dL 7-18 GLOMERULAR FILTRATION RATE (test code = GFR) 71.9 70-80 N Units of measure = ml/min/1.73 m2 CREATININE (test code = CREAT) 1.0 mg/dL 0.6-1.3 N CALCIUM (test code = CA) 8.7 mg/dL 8.0-10.5 N [id number] 08:21:00* Test Item Value Reference Range Interpretation Comments PHOSPHOROUS (test code = PHOS) 3.1 MG/DL 2.5-4.9 N [id number] 08:21:00* Test Item Value Reference Range Interpretation Comments MAGNESIUM (test code = MAG) 2.10 mg/dL 1.8-2.4 N THYROID STIMULATING [id number] 08:21:00* Test Item Value Reference Range Interpretation Comments THYROID STIMULATING HORMONE (test code = TSH) 1.23 0.42-5.4 7 N Results in kt- International Units/mL [id number] 20:52:00* Test Item Value Reference Range Interpretation Comments GLUBED (test code = GLUBED) 140 MG/DL 70-110 H Performed by certified wafer fabrication operator at [facility] [id number] 16:49:00* Test Item Value Reference Range Interpretation Comments TROPONIN-I (test code = TROPI) < 0.015 ng/mL 0.000-0.045 N Negative: <= 0.045 Positive: >= 0.046 Correlation with serial results, other cardiac markers andclinical findings is necessary to determine the clinicalsignificance of this result. Results using different methodologies should not be comparedto one another as quantitative results may vary by method. [id number] 16:33:00* Test Item Value Reference Range Interpretation Comments GLUBED (test code = GLUBED) 172 MG/DL 70-110 H Performed by certified wafer fabrication operator at [facility] [id number] 13:22:00* Test Item Value Reference Range Interpretation Comments TROPONIN-I (test code = TROPI) < 0.015 ng/mL 0.000-0.045 N Negative: <= 0.045 Positive: >= 0.046 Correlation with serial results, other cardiac markers andclinical findings is necessary to determine the clinicalsignificance of this result. Results using different methodologies should not be comparedto one another as quantitative results may vary by method. [id number] 13:07:00* Test Item Value Reference Range Interpretation Comments GLUBED (test code = GLUBED) 203 MG/DL 70-110 H Performed by certified wafer fabrication operator at [facility] BASIC METABOLIC [id number] 10:16:00* Test Item Value Reference Range Interpretation Comments SODIUM (test code = NA) 142 mEq/L 134-147 N POTASSIUM (test code = K) 4.0 mEq/L 3.4-5.0 N CHLORIDE (test code = CL) 113 mEq/L 100-108 H CARBON DIOXIDE (test code = CO2) 25 mEq/L 21-33 N ANION GAP (test code = GAP) 8 0-20 N GLUCOSE (test code = GLU) 135 mg/dL 70-110 H BLOOD UREA NITROGEN (test code = BUN) 14 mg/dL 7-18 N GLOMERULAR FILTRATION RATE (test code = GFR) 71.9 70-80 N Units of measure = ml/min/1.73 m2 CREATININE (test code = CREAT) 1.0 mg/dL 0.6-1.3 N CALCIUM (test code = CA) 8.3 mg/dL 8.0-10.5 N HEPATIC FUNCTION [id number] 10:16:00* Test Item Value Reference Range Interpretation Comments TOTAL PROTEIN (test code = PROT) 6.7 g/dL 6.4-8.2 N ALBUMIN (test code = ALB) 3.10 g/dL 3.4-5.0 L BILIRUBIN TOTAL (test code = BILT) 0.5 MG/DL <1.5 N BILIRUBIN DIRECT (test code = BILD) 0.20 MG/DL 0.0-0.30 N BILIRUBIN INDIRECT (test code = BILIND) 0.30 MG/DL SGOT/AST (test code = AST) 22 IUnit/L 15-37 N SGPT/ALT (test code = ALT) 33 IUnit/L 15-65 N ALKALINE PHOSPHATASE TOTAL (test code = ALKP) 65 IUnit/L 20-125 N TSH REFLEX TO [id number] 10:16:00* Test Item Value Reference Range Interpretation Comments TSH REFLEX TO FT4 (test code = TSHREFLEX) 1.36 IU/mL 0.42-5.47 N [id number] 10:16:00* Test Item Value Reference Range Interpretation Comments TROPONIN-I (test code = TROPI) < 0.015 ng/mL 0.000-0.045 N Negative: <= 0.045 Positive: >= 0.046 Correlation with serial results, other cardiac markers andclinical findings is necessary to determine the clinicalsignificance of this result. Results using different methodologies should not be comparedto one another as quantitative results may vary by method. PROTHROMBIN [id number] 10:06:00* Test Item Value Reference Range Interpretation Comments PROTHROMBIN TIME PATIENT (test code = PTP) 15.4 SECONDS 9.3-12.9 H INTERNATIONAL NORMAL RATIO (test code = INR) 1.4 0.8-1.2 H TARGET INR BY INDICATION Indication INR1. Prophylaxis of venous thrombosis 2.0 - 3.0 (orthopedic surgery), Prophylaxis of venous thrombosis (other than high-risk surgery), Treatment of Deep Vein Thrombosis/Pulmonary Embolism, Prevention of systemic embolism - Tissue heart valves, Acute Myocardial Infarction (to prevent systemic embolism), Valvular heart disease, Atrial Fibrillation, Bileaflet mechanical valve in aortic position.2. Mechanical prosthetic valves (high risk), 2.5 - 3.5 Presence of Lupus Anticoagulant or Antiphospholipid Antibodies, Prevention of systemic embolism - Acute Myocardial Infarction (to prevent recurrent infarct). B-TYPE NATRIURETIC [id number] 10:05:00* Test Item Value Reference Range Interpretation Comments B-TYPE NATRIURETIC PEPTIDE (test code = BNP) 196.3 PG/ML 0-100 H BASIC METABOLIC [id number] 09:59:00* Test Item Value Reference Range Interpretation Comments SODIUM (test code = NA) 142 mEq/L 134-147 N POTASSIUM (test code = K) 4.0 mEq/L 3.4-5.0 N CHLORIDE (test code = CL) 113 mEq/L 100-108 H CARBON DIOXIDE (test code = CO2) 25 mEq/L 21-33 N ANION GAP (test code = GAP) 8 0-20 N GLUCOSE (test code = GLU) 135 mg/dL 70-110 H BLOOD UREA NITROGEN (test code = BUN) 14 mg/dL 7-18 N GLOMERULAR FILTRATION RATE (test code = GFR) 71.9 70-80 N Units of measure = ml/min/1.73 m2 CREATININE (test code = CREAT) 1.0 mg/dL 0.6-1.3 N CALCIUM (test code = CA) 8.3 mg/dL 8.0-10.5 N HEPATIC FUNCTION [id number] 09:59:00* Test Item Value Reference Range Interpretation Comments TOTAL PROTEIN (test code = PROT) 6.7 g/dL 6.4-8.2 N ALBUMIN (test code = ALB) 3.10 g/dL 3.4-5.0 L BILIRUBIN TOTAL (test code = BILT) 0.5 MG/DL <1.5 N BILIRUBIN DIRECT (test code = BILD) 0.20 MG/DL 0.0-0.30 N BILIRUBIN INDIRECT (test code = BILIND) 0.30 MG/DL SGOT/AST (test code = AST) 22 IUnit/L 15-37 N SGPT/ALT (test code = ALT) 33 IUnit/L 15-65 N ALKALINE PHOSPHATASE TOTAL (test code = ALKP) 65 IUnit/L 20-125 N TSH REFLEX TO [id number] 09:59:00* Test Item Value Reference Range Interpretation Comments TSH REFLEX TO FT4 (test code = TSHREFLEX) IU/mL 0.42-5.47 [id number] 09:59:00* Test Item Value Reference Range Interpretation Comments TROPONIN-I (test code = TROPI) < 0.015 ng/mL 0.000-0.045 N Negative: <= 0.045 Positive: >= 0.046 Correlation with serial results, other cardiac markers andclinical findings is necessary to determine the clinicalsignificance of this result. Results using different methodologies should not be comparedto one another as quantitative results may vary by method. BASIC METABOLIC [id number] 09:55:00* Test Item Value Reference Range Interpretation Comments SODIUM (test code = NA) mEq/L 134-147 POTASSIUM (test code = K) mEq/L 3.4-5.0 CHLORIDE (test code = CL) mEq/L 100-108 CARBON DIOXIDE (test code = CO2) mEq/L 21-33 ANION GAP (test code = GAP) 0-20 GLUCOSE (test code = GLU) mg/dL 70-110 BLOOD UREA NITROGEN (test code = BUN) mg/dL 7-18 GLOMERULAR FILTRATION RATE (test code = GFR) 70-80 CREATININE (test code = CREAT) mg/dL 0.6-1.3 CALCIUM (test code = CA) mg/dL 8.0-10.5 HEPATIC FUNCTION [id number] 09:55:00* Test Item Value Reference Range Interpretation Comments TOTAL PROTEIN (test code = PROT) g/dL 6.4-8.2 ALBUMIN (test code = ALB) g/dL 3.4-5.0 BILIRUBIN TOTAL (test code = BILT) MG/DL <1.5 BILIRUBIN DIRECT (test code = BILD) MG/DL 0.0-0.30 SGOT/AST (test code = AST) IUnit/L 15-37 SGPT/ALT (test code = ALT) IUnit/L 15-65 ALKALINE PHOSPHATASE TOTAL (test code = ALKP) IUnit/L 20-125 TSH REFLEX TO [id number] 09:55:00* Test Item Value Reference Range Interpretation Comments TSH REFLEX TO FT4 (test code = TSHREFLEX) IU/mL 0.42-5.47 [id number] 09:55:00* Test Item Value Reference Range Interpretation Comments TROPONIN-I (test code = TROPI) < 0.015 ng/mL 0.000-0.045 N Negative: <= 0.045 Positive: >= 0.046 Correlation with serial results, other cardiac markers andclinical findings is necessary to determine the clinicalsignificance of this result. Results using different methodologies should not be comparedto one another as quantitative results may vary by method. CBC W/AUTO [id number] 09:36:00* Test Item Value Reference Range Interpretation Comments WHITE BLOOD CELL (test code = WBC) 10.15 x10 3/uL 4.5-11.0 N RED BLOOD CELL (test code = RBC) 4.52 x10 6/uL 4.00-5.60 N HEMOGLOBIN (test code = HGB) 12.4 g/dL 12.5-16.9 L HEMATOCRIT (test code = HCT) 40.5 % 37.5-50.7 N MEAN CELL VOLUME (test code = MCV) 89.6 fL 81.0-99.0 N MEAN CELL HGB (test code = MCH) 27.4 pg 27.0-33.0 N MEAN CELL HGB CONCETRATION (test code = MCHC) 30.6 g/dL 33.0-37. 0 L RED CELL DISTRIBUTION WIDTH CV (test code = RDW) 13.6 % 11.5- 14.5 N RED CELL DISTRIBUTION WIDTH SD (test code = RDW-SD) 44.5 fL 37 .0-54.0 N PLATELET COUNT (test code = PLT) 255 x10 3/uL 150-400 N MEAN PLATELET VOLUME (test code = MPV) 10.7 fL 7.0-9.0 H NEUTROPHIL % (test code = NT%) 67.8 % 56.0-77.0 N IMMATURE GRANULOCYTE % (test code = IG%) 0.3 % 0.0-2.0 N LYMPHOCYTE % (test code = LY%) 22.0 % 14.0-32.0 N MONOCYTE % (test code = MO%) 7.5 % 4.8-9.0 N EOSINOPHIL % (test code = EO%) 2.0 % 0.3-3.7 N BASOPHIL % (test code = BA%) 0.4 % 0.0-2.0 N NUCLEATED RBC % (test code = NRBC%) 0.0 % 0-0 N NEUTROPHIL # (test code = NT#) 6.89 x10 3/uL 2.0-7.6 N IMMATURE GRANULOCYTE # (test code = IG#) 0.03 x10 3/uL 0.00-0.03 N LYMPHOCYTE # (test code = LY#) 2.23 x10 3/uL 1.0-3.8 N MONOCYTE # (test code = MO#) 0.76 x10 3/uL 0.1-0.8 N EOSINOPHIL # (test code = EO#) 0.20 x10 3/uL 0.0-0.2 N BASOPHIL # (test code = BA#) 0.04 x10 3/uL 0.0-0.2 N NUCLEATED RBC # (test code = NRBC#) 0.00 x10 3/uL 0.0-0.1 N MANUAL DIFF REQUIRED (test code = MDIFF) NO - XR CHEST 1 [id number] 09:20:00 FAX: Alphonse Gudino [phone] [place]: St: REG FAX: Balaji Swain MD [phone] Name: AMARI RINALDI [facility] : 1940 Age/S: 79/M [address] [place] [address] Blvd Unit #: [id number] Loc: [address] [address] Phys: Balaji Swain MD Acct: [id number] Dis Date: Status: REG ER PHONE #: [phone] Exam Date: 03/25/2020912 FAX #: [phone] Reason: Chest Pain EXAMS: CPT CODE: [id number] XR CHEST 1 V 10757 CLINICAL HISTORY:Chest Pain COMPARISON:January 27, 2020 Frontal film of the chest performed at 0909 on March 25, 2020 demonstrates monitor leads in place. Heart size is normal. Lung cannon are clear. There is no evidence of pneumonia or congestive failure. Calcified granuloma is present in the right lung base. A rounded retrocardiac opacity compatible with hiatus hernia is also noted. No significant interval change is noted since previous examination. IMPRESSION: 1. No evidence of pneumonia or congestive failure. 2. Calcified granuloma in the right lung as well as hiatus hernia and retrocardiac region. at 0920 Reported and signed by: Unruly Venegas M.D. CC: Alphonse Gill; Balaji Swain MD Technologist: RT Brendon(Kimberly) Trnscrd Date/Time/By: 03/25/2020 (919) : By: Warner Hankins Print D/T: S: 03/25/2020 (6762) PAGE 1 Signed Report SURGICAL [id number] 13:05:00 RUN DATE: 02/04/20 [place] [facility] *LIVE* PAGE 1 RUN TIME: 1306 Specimen Inqui ry RUN USER: INTERFACE PATIENT: AMARI RINALDI ACCT #: [id number] LOC: [place] U #: [id number] AGE/SX: 79/M ROOM: RE01/30/20REG DR: Shani Branham MD : 38 BED: DIS: STATUS: DEP [facility] TLOC: SPEC #: [id number] RECD: 01/30/20 STATUS: [place] REQ #: [id number] TELMA: 01/30/[address] [facility] [address]: Shani Branham MD ENTERED: 02/04/20-1019 SP TYPE: SURG SPEC OTHR DR: Alphonse Gill MD ORDERED: GM LEVEL 4 CODES: [id number] - STOMACH, NOS X54982 - SMALL INTESTINE [id number] - COLON, NOS COPIES TO: Shani Branham MD [address] [place] [address] Alphonse Gill MD [address] [address] [place] [address] PROCEDURES: GM LEVEL 4 (Inco mplete) TISSUES: 1. SMALL INTESTINE, NOS - Small intestine, bx. 2. STOMACH, NOS - Stomach, bx. 3. COLON, NOS - Colon, ascending, bx. 4. COLON, NOS - Colon, transverse, bx. FINAL DIAGNOSIS Small intestine, bx.: Small bowel mucosa with normal villous configuration (no evidence of celiac sprue). Stomach, biopsy: Fundic gland polyp. Colon, ascending, bx.: Benign colonic mucosa with no diagnostic abnormalitie s. Colon, transverse, bx.: Fragments of tubular adenoma. GROSS AND OR CROSCOPIC GROSS EXAMINATION: Received is/are the specimen/s designated with t he appropriate dimensions and block designation: 1. Small intestine, bx.: 3 segments of pink-nelson tissue, measuring up to 0.5 cm. in greatest dimension each (A). CONTINUED ON NEXT PAGE RUN ARGELIA E: 02/04/20 [facility] *LIVE* PAGE 2 RUN TIME: 1306 Specimen Inquiry RUN USER: INTERFACE SPEC #: [id number] PATIENT: AMARI RINALDI # [id number] (Continued) GROSS AND MICROSCOPIC (Continu ed) 2. Stomach, bx.: 1 segment of pink-nelson tissue, measuring up to 0.3 cm. in greatest dimension (B). 3. Colon, ascending, bx.: 1 segment of pink-nelson tissue, measuring up to 0.2 cm. in greatest dimension (C). 4. Colon, transverse, bx.: 5 segments of pink-nelson tissue, measuring up to 0.2 cm. in greatest dimension each (D). MICROSCOPIC E XAMINATION: The biopsy reveals small bowel mucosa with normal villous formati on. No atypical features are identified. Sections reveal fun dic gland polyp that is characterized by irregular dilated glands. The lamina propria shows edema and some chronic inflammatory cells. No Helicobacter pylori organisms are identified by immunostain and no intest inal type metaplasia is identified with the Alcian blue/PAS stain. Specimen #3, shows benign colonic tissue with no diagnostic abnormalities. Specimen #4, reveals fragments of t ubular adenoma. POST-OP DIAGNOSIS Hiatal noble ia, gastric polyp PRE-OP DIAGNOSIS Anemia, positive occult blood----- ------- Signed SIGNATURE ON FILE Tory Bo MD 02/04/20 1305 END O F REPORT [id number] 11:15:00* Test Item Value Reference Range Interpretation Comments GLUBED (test code = GLUBED) 114 MG/DL 70-110 H Performed by certified wafer fabrication operator at [facility] BASIC METABOLIC [id number] 07:35:00* Test Item Value Reference Range Interpretation Comments SODIUM (test code = NA) 140 mEq/L 134-147 N POTASSIUM (test code = K) 4.7 mEq/L 3.4-5.0 N SP ECIMEN 1+ HEMOLYZED.Results known to be adversely affected by hemolysis are: Potassium Magnesium LDH Phosphorus CHLORIDE (test code = CL) 109 mEq/L 100-108 H CARBON DIOXIDE (test code = CO2) 21 mEq/L 21-33 N ANION GAP (test code = GAP) 15 0-20 N GLUCOSE (test code = GLU) 116 mg/dL 70-110 H BLOOD UREA NITROGEN (test code = BUN) 13 mg/dL 7-18 N GLOMERULAR FILTRATION RATE (test code = GFR) 64.4 70-80 L Units of measure = ml/min/1.73 m2 CREATININE (test code = CREAT) 1.1 mg/dL 0.6-1.3 N CALCIUM (test code = CA) 9.0 mg/dL 8.0-10.5 N [id number] 07:14:00* Test Item Value Reference Range Interpretation Comments GLUBED (test code = GLUBED) 116 MG/DL 70-110 H Performed by certified wafer fabrication operator at [facility] Novel Coronavirus 2019 [id number] 02:55:00* Test Item Value Reference Range Interpretation Comments Novel Coronavirus 2019 Inhouse (test code = COVNONPUI) Negative Negative BASIC METABOLIC [id number] 12:11:00* Test Item Value Reference Range Interpretation Comments SODIUM (test code = NA) 138 mEq/L 134-147 N POTASSIUM (test code = K) 4.1 mEq/L 3.4-5.0 N CHLORIDE (test code = CL) 109 mEq/L 100-108 H CARBON DIOXIDE (test code = CO2) 24 mEq/L 21-33 N ANION GAP (test code = GAP) 9 0-20 N GLUCOSE (test code = GLU) 170 mg/dL 70-110 H BLOOD UREA NITROGEN (test code = BUN) 18 mg/dL 7-18 N GLOMERULAR FILTRATION RATE (test code = GFR) 64.4 70-80 L Units of measure = ml/min/1.73 m2 CREATININE (test code = CREAT) 1.1 mg/dL 0.6-1.3 N CALCIUM (test code = CA) 8.8 mg/dL 8.0-10.5 N BASIC METABOLIC [id number] 12:07:00* Test Item Value Reference Range Interpretation Comments SODIUM (test code = NA) 138 mEq/L 134-147 N POTASSIUM (test code = K) 4.1 mEq/L 3.4-5.0 N CHLORIDE (test code = CL) 109 mEq/L 100-108 H CARBON DIOXIDE (test code = CO2) 24 mEq/L 21-33 N ANION GAP (test code = GAP) 9 0-20 N GLUCOSE (test code = GLU) 170 mg/dL 70-110 H BLOOD UREA NITROGEN (test code = BUN) 18 mg/dL 7-18 N GLOMERULAR FILTRATION RATE (test code = GFR) 70-80 CREATININE (test code = CREAT) mg/dL 0.6-1.3 CALCIUM (test code = CA) 8.8 mg/dL 8.0-10.5 N CBC W/AUTO [id number] 11:59:00* Test Item Value Reference Range Interpretation Comments WHITE BLOOD CELL (test code = WBC) 8.44 x10 3/uL 4.5-11.0 N RED BLOOD CELL (test code = RBC) 3.99 x10 6/uL 4.00-5.60 L HEMOGLOBIN (test code = HGB) 11.0 g/dL 12.5-16.9 L HEMATOCRIT (test code = HCT) 34.8 % 37.5-50.7 L MEAN CELL VOLUME (test code = MCV) 87.2 fL 81.0-99.0 N MEAN CELL HGB (test code = MCH) 27.6 pg 27.0-33.0 N MEAN CELL HGB CONCETRATION (test code = MCHC) 31.6 g/dL 33.0-37. 0 L RED CELL DISTRIBUTION WIDTH CV (test code = RDW) 13.6 % 11.5- 14.5 N RED CELL DISTRIBUTION WIDTH SD (test code = RDW-SD) 43.3 fL 37 .0-54.0 N PLATELET COUNT (test code = PLT) 275 x10 3/uL 150-400 N MEAN PLATELET VOLUME (test code = MPV) 10.1 fL 7.0-9.0 H NEUTROPHIL % (test code = NT%) 68.6 % 56.0-77.0 N IMMATURE GRANULOCYTE % (test code = IG%) 0.4 % 0.0-2.0 N LYMPHOCYTE % (test code = LY%) 19.5 % 14.0-32.0 N MONOCYTE % (test code = MO%) 8.5 % 4.8-9.0 N EOSINOPHIL % (test code = EO%) 2.6 % 0.3-3.7 N BASOPHIL % (test code = BA%) 0.4 % 0.0-2.0 N NUCLEATED RBC % (test code = NRBC%) 0.0 % 0-0 N NEUTROPHIL # (test code = NT#) 5.79 x10 3/uL 2.0-7.6 N IMMATURE GRANULOCYTE # (test code = IG#) 0.03 x10 3/uL 0.00-0.03 N LYMPHOCYTE # (test code = LY#) 1.65 x10 3/uL 1.0-3.8 N MONOCYTE # (test code = MO#) 0.72 x10 3/uL 0.1-0.8 N EOSINOPHIL # (test code = EO#) 0.22 x10 3/uL 0.0-0.2 H BASOPHIL # (test code = BA#) 0.03 x10 3/uL 0.0-0.2 N NUCLEATED RBC # (test code = NRBC#) 0.00 x10 3/uL 0.0-0.1 N MANUAL DIFF REQUIRED (test code = MDIFF) NO - XR CHEST 2 [id number] 11:45:00 FAX: Shani Dominguez MD [phone] [place]: St: PRE FAX: Alphonse Gudino [phone] FAX: Tena Clarke Name: AMARI RINALDI [facility] [place] : 1940 Age/S: 79/M [address] [place] [address] Blvd Unit #: [id number] Loc: [place] [address] Phys: Tena Clarke NP Acct: [id number] Dis Date: Status: PRE SDC PH ONE #: [phone] Exam Date: 01/27/2020 1129 FAX #: [phone] Reason: PRE-OP EGD/COLON EXAMS: CPT CODE: [id number] XR CHEST 2 V 43450 Study: - XR C HEST 2 V 01/27/2020 10:43 AM Patient Name: AMARI RINALDI MR: [id number] : 1940; Age: 79 years y/o Male Ordering Physician: Catherine Clarke NP Clinical Indication: PRE-OP EGD/COLON Comparison: None FINDINGS LUNGS: The lungs are clear of consolidation, pleural effusion, and pneumothorax. Calcified gra nuloma in the right lower lung. HEART AND MEDIASTINUM: Normal size heart. LINES: None. OSSEOUS STRUCTURES: Mild spinal degenerative change without fracture, dislocation, or focal osseous lesio n. OTHER: None. IMPRESSION: No acute abnormality as above discussed. SL: [id number] Electronically Signed by Stanley Che on at 1145 Reported and signed by: Raquel Kraft CC: Shani Branham MD; Alphonse Gill; Tena Clarke NP Technologis t: Sheri WrightRT(R) Trnscrd Date/Time/By: 01/27/2020 (1225) : By: [id number] Orig Print D/T: S: 01/27/2020 (3316) PAGE 1 Signed Report Urine [id number] 14:58:00* Test Item Value Reference Range Interpretation Comments Urine WBC (test code = 5821-4) 6-10 0-5 [facility] [id number] 14:58:00* Test Item Value Reference Range Interpretation Comments Urine RBC (test code = 82983-0) 0-5 0-5 [facility] [id number] 14:58:00* Test Item Value Reference Range Interpretation Comments Urine Bacteria (test code = 65972-6) MODERATE NONE H [facility] Epithelial [id number] 14:58:00 * Test Item Value Reference Range Interpretation Comments Urine Epithelial Cells (test code = 94118-3) NONE NONE [facility] Hyaline [id number] 14:58:00* Test Item Value Reference Range Interpretation Comments Urine Hyaline Casts (test code = 19770-6) 2-5 0-1 H [facility] [id number] 14:34:00* Test Item Value Reference Range Interpretation Comments Urine Color (test code = 5778-6) ORANGE YELLOW H [facility] Edumidd9077-83-49 14:34:00* Test Item Value Reference Range Interpretation Comments Urine Clarity (test code = 99466-9) CLOUDY CLEAR H [facility] Specific [id number] 14:34:00 * Test Item Value Reference Range Interpretation Comments Urine Specific [place] (test code = 5811-5) >=1.030 1.010-1.02 5 [facility] [id number] 14:34:00* Test Item Value Reference Range Interpretation Comments Urine pH (test code = 99770-2) 5.5 5-7 [facility] Leukocyte Jwpftkbg6553-11-20 14:34:00* Test Item Value Reference Range Interpretation Comments Urine Leukocyte Esterase (test code = 32779-3) TRACE NEGATIV E H [facility] [id number] 14:34:00* Test Item Value Reference Range Interpretation Comments Urine Nitrite (test code = 61892-2) POSITIVE NEGATIVE H [facility] [id number] 14:34:00* Test Item Value Reference Range Interpretation Comments Urine Protein (test code = 02281-3) 1+ NEGATIVE H [facility] Glucose (UA)2019-07-08 14:34:00* Test Item Value Reference Range Interpretation Comments Urine Glucose (UA) (test code = 12197-9) NEGATIVE NEGATIVE [facility] [id number] 14:34:00* Test Item Value Reference Range Interpretation Comments Urine Ketones (test code = 47927-8) NEGATIVE NEGATIVE [facility] Yugstpeynxyy9813-49-01 14:34:00* Test Item Value Reference Range Interpretation Comments Urine Urobilinogen (test code = 46454-7) 1 0.2-1 [facility] Gdsgqlqzu9608-00-43 14:34:00* Test Item Value Reference Range Interpretation Comments Urine Bilirubin (test code = 1977-8) NEGATIVE NEGATIVE [facility] Gsdqu6570-04-44 14:34:00* Test Item Value Reference Range Interpretation Comments Urine Blood (test code = 44408-3) TRACE NEGATIVE [facility] [id number] 19:03:00* Test Item Value Reference Range Interpretation Comments Bedside Glucose (test code = 71262-4) 155 70-120 H Meter ID: [id number] [facility] Glucose 2019-07-02 11:42:00* Test Item Value Reference Range Interpretation Comments Bedside Glucose (test code = 15388-8) 146 70-120 H Meter ID: [id number] [facility] Total Cells [id number] 10:41:00* Test Item Value Reference Range Interpretation Comments Differential Total Cells Counted (test code = Differen tial Total Cells Counted) 100 [facility] NorthwestNeutrophils % (Manual)2019-07-02 10:41:00 * Test Item Value Reference Range Interpretation Comments Neutrophils % (Manual) (test code = 70404-6) 72 40-74 [facility] NorthwestLymphocytes % (Manual)2019-07-02 10:41:00 * Test Item Value Reference Range Interpretation Comments Lymphocytes % (Manual) (test code = 737-7) 15 19-48 L [facility] NorthwestMonocytes % (Manual)2019-07-02 10:41:00* Test Item Value Reference Range Interpretation Comments Monocytes % (Manual) (test code = 744-3) 10 3.4-9.0 H [facility] NorthwestEosinophils % (Manual)2019-07-02 10:41:00 * Test Item Value Reference Range Interpretation Comments Eosinophils % (Manual) (test code = 714-6) 2 0-7 [facility] Northwest[facility] % (Manual)2019-07-02 10:41:00* Test Item Value Reference Range Interpretation Comments Basophils % (Manual) (test code = 34300-8) 1 0-1.5 [facility] NorthwestPlatelet Rlevynln4311-91-06 10:41:00* Test Item Value Reference Range Interpretation Comments Platelet Estimate (test code = 36518-7) ADEQUATE [facility] NorthwestPlatelet Morphology Opwyzhb3238-24-60 10:41:00* Test Item Value Reference Range Interpretation Comments Platelet Morphology Comment (test code = 03040-1) NORMAL [facility] NorthwestPoikilocytosis2019-10-23 10:41:00* Test Item Value Reference Range Interpretation Comments Poikilocytosis (test code = 779-9) SLIGHT [facility] NorthwestOvalocytes2019-10-23 10:41:00* Test Item Value Reference Range Interpretation Comments Ovalocytes (test code = 774-0) FEW [facility]2019-10-23 10:41:00* Test Item Value Reference Range Interpretation Comments Schistocytes (test code = 800-3) RARE [facility] NorthwestRed Cell Morphology Mjbzjue8061-49-03 10:41:00* Test Item Value Reference Range Interpretation Comments Red Cell Morphology Comment (test code = 6742-1) ABNORMAL [facility] NorthwestDifferential Total Cells Counted 2019-07-02 10:41:00* Test Item Value Reference Range Interpretation Comments Differential Total Cells Counted (test code = Differletty tial Total Cells Counted) 100 [facility] NorthwestNeutrophils % (Manual)2019-07-02 10:41:00 * Test Item Value Reference Range Interpretation Comments Neutrophils % (Manual) (test code = 35302-2) 72 40-74 [facility] NorthwestLymphocytes % (Manual)2019-07-02 10:41:00 * Test Item Value Reference Range Interpretation Comments Lymphocytes % (Manual) (test code = 737-7) 15 19-48 L [facility] NorthwestMonocytes % (Manual)2019-07-02 10:41:00* Test Item Value Reference Range Interpretation Comments Monocytes % (Manual) (test code = 744-3) 10 3.4-9.0 H [facility] NorthwestEosinophils % (Manual)2019-07-02 10:41:00 * Test Item Value Reference Range Interpretation Comments Eosinophils % (Manual) (test code = 714-6) 2 0-7 [facility] NorthwestBasophils % (Manual)2019-07-02 10:41:00* Test Item Value Reference Range Interpretation Comments Basophils % (Manual) (test code = 94718-5) 1 0-1.5 [facility] NorthwestPlatelet Asazaeaj2755-76-61 10:41:00* Test Item Value Reference Range Interpretation Comments Platelet Estimate (test code = 37053-7) ADEQUATE [facility] NorthwestPlatelet Morphology Fqijtge3992-46-83 10:41:00* Test Item Value Reference Range Interpretation Comments Platelet Morphology Comment (test code = 36610-1) NORMAL [facility] NorthwestPoikilocytosis2019-10-23 10:41:00* Test Item Value Reference Range Interpretation Comments Poikilocytosis (test code = 779-9) SLIGHT [facility] NorthwestOvalocytes2019-10-23 10:41:00* Test Item Value Reference Range Interpretation Comments Ovalocytes (test code = 774-0) FEW [facility] Hospitalchistocytes2019-10-23 10:41:00* Test Item Value Reference Range Interpretation Comments Schistocytes (test code = 800-3) RARE [facility] NorthwestRed Cell Morphology Puihrhg4728-59-54 10:41:00* Test Item Value Reference Range Interpretation Comments Red Cell Morphology Comment (test code = 6742-1) ABNORMAL [facility] Hospitalodium Gvoyb3074-91-18 10:13:00* Test Item Value Reference Range Interpretation Comments Sodium Level (test code = 2951-2) 136 136-145 [facility] NorthwestPotassium Elrmg5416-87-56 10:13:00* Test Item Value Reference Range Interpretation Comments Potassium Level (test code = 2823-3) 4.5 3.5-5.1 [facility] NorthwestChloride Umpfx0182-26-88 10:13:00* Test Item Value Reference Range Interpretation Comments Chloride Level (test code = 2075-0) 103 98-107 [facility] NorthwestCarbon Dioxide Jjoic5389-42-02 10:13:00* Test Item Value Reference Range Interpretation Comments Carbon Dioxide Level (test code = 2028-9) 23 22-29 [facility] NorthwestAnion Mlf8704-33-58 10:13:00* Test Item Value Reference Range Interpretation Comments Anion Gap (test code = 57009-2) 14.5 8-16 [facility] NorthwestBlood Urea Fhulelsr6085-63-95 10:13:00* Test Item Value Reference Range Interpretation Comments Blood Urea Nitrogen (test code = 3094-0) 9 7-26 [facility] NorthwestCreatinine2019-10-23 10:13:00* Test Item Value Reference Range Interpretation Comments Creatinine (test code = 2160-0) 0.45 0.72-1.25 L [facility] NorthwestBUN/Creatinine Ciyyz5846-05-10 10:13:00* Test Item Value Reference Range Interpretation Comments BUN/Creatinine Ratio (test code = 3097-3) 20 6-25 [facility] NorthwestEstimat Glomerular Filtration Rate 2019-07-02 10:13:00* Test Item Value Reference Range Interpretation Comments Estimat Glomerular Filtration Rate (test code = [id number]) > 60 >60 Ranges were taken from the National Kidney Disease Education Program and the [facility] literature.Reference ranges:60 or greater: Rmgbft46-33 ( for 3 consecutive months): Chronic kidney disease 15 or less: Kidney failureCorpus Christi Medical Center NorthwestGlucose Amudn8611-64-42 10:13:00* Test Item Value Reference Range Interpretation Comments Glucose Level (test code = CEQ0642) 133 74-118 H [facility] NorthwestCalcium Swlqh6332-36-56 10:13:00* Test Item Value Reference Range Interpretation Comments Calcium Level (test code = 92886-2) 9.4 8.4-10.2 [facility]odium Gwxpu0874-77-63 10:13:00* Test Item Value Reference Range Interpretation Comments Sodium Level (test code = 2951-2) 136 136-145 [facility] NorthwestPotassium Rvdcx5468-13-51 10:13:00* Test Item Value Reference Range Interpretation Comments Potassium Level (test code = 2823-3) 4.5 3.5-5.1 [facility] NorthwestChloride Pdtgl6270-65-12 10:13:00* Test Item Value Reference Range Interpretation Comments Chloride Level (test code = 2075-0) 103 98-107 [facility] NorthwestCarbon Dioxide Ltaux3030-09-29 10:13:00* Test Item Value Reference Range Interpretation Comments Carbon Dioxide Level (test code = 2028-9) 23 22-29 [facility] NorthwestAnion Wtd2207-45-28 10:13:00* Test Item Value Reference Range Interpretation Comments Anion Gap (test code = 51271-7) 14.5 8-16 [facility] NorthwestBlood Urea Wuywkgbs8923-56-62 10:13:00* Test Item Value Reference Range Interpretation Comments Blood Urea Nitrogen (test code = 3094-0) 9 7-26 [facility] NorthwestCreatinine2019-10-23 10:13:00* Test Item Value Reference Range Interpretation Comments Creatinine (test code = 2160-0) 0.45 0.72-1.25 L [facility] NorthwestBUN/Creatinine Euuay7834-51-12 10:13:00* Test Item Value Reference Range Interpretation Comments BUN/Creatinine Ratio (test code = 3097-3) 20 6-25 [facility] NorthwestEstimat Glomerular Filtration Rate 2019-07-02 10:13:00* Test Item Value Reference Range Interpretation Comments Estimat Glomerular Filtration Rate (test code = 971581511) > 60 >60 Ranges were taken from the National Kidney Disease Education Program and the [facility] literature.Reference ranges:60 or greater: Ndcqro10-38 ( for 3 consecutive months): Chronic kidney disease 15 or less: Kidney failureCorpus Christi Medical Center NorthwestGlucose Urnzu4275-43-66 10:13:00* Test Item Value Reference Range Interpretation Comments Glucose Level (test code = IPX9714) 133 74-118 H [facility] NorthwestCalcium Jyttu3990-59-83 10:13:00* Test Item Value Reference Range Interpretation Comments Calcium Level (test code = 70149-0) 9.4 8.4-10.2 [facility] NorthwestWhite Blood Pgpws9792-58-02 09:51:00* Test Item Value Reference Range Interpretation Comments White Blood Count (test code = 6690-2) 16.54 4.8-10.8 H [facility] NorthwestRed Blood Qqodk2855-48-36 09:51:00* Test Item Value Reference Range Interpretation Comments Red Blood Count (test code = 789-8) 4.38 4.3-5.7 [facility] NorthwestHemoglobin2019-10-23 09:51:00* Test Item Value Reference Range Interpretation Comments Hemoglobin (test code = 30409-7) 11.7 14.0-18.0 L [facility] NorthwestHematocrit2019-10-23 09:51:00* Test Item Value Reference Range Interpretation Comments Hematocrit (test code = 4544-3) 36.2 38.2-49.6 L [facility] NorthwestMean Corpuscular Ppobkq8375-69-80 09:51:00* Test Item Value Reference Range Interpretation Comments Mean Corpuscular Volume (test code = 787-2) 82.6 81-99 [facility] NorthwestMean Corpuscular Mmjbytqlwg0611-03-43 09:51:00* Test Item Value Reference Range Interpretation Comments Mean Corpuscular Hemoglobin (test code = 785-6) 26.7 28-32 L [facility] NorthwestMean Corpuscular Hemoglobin Concent 2019-07-02 09:51:00* Test Item Value Reference Range Interpretation Comments Mean Corpuscular Hemoglobin Concent (test code = 786-4) 32.3 31-35 [facility] NorthwestRed Cell Distribution Rihzl8127-05-53 09:51:00* Test Item Value Reference Range Interpretation Comments Red Cell Distribution Width (test code = 30049-2) 13.9 11.7 -14.4 [facility] NorthwestPlatelet Kxjyy7478-41-87 09:51:00* Test Item Value Reference Range Interpretation Comments Platelet Count (test code = 777-3) 226 140-360 [facility] NorthwestNeutrophils (%) (Auto)2019-07-02 09:51:00 * Test Item Value Reference Range Interpretation Comments Neutrophils (%) (Auto) (test code = 74594-9) 72.8 38.7-80.0 [facility] NorthwestLymphocytes (%) (Auto)2019-07-02 09:51:00 * Test Item Value Reference Range Interpretation Comments Lymphocytes (%) (Auto) (test code = 736-9) 10.2 18.0-39.1 L [facility] NorthwestMonocytes (%) (Auto)2019-07-02 09:51:00* Test Item Value Reference Range Interpretation Comments Monocytes (%) (Auto) (test code = 5905-5) 14.6 4.4-11.3 H [facility] NorthwestEosinophils (%) (Auto)2019-07-02 09:51:00 * Test Item Value Reference Range Interpretation Comments Eosinophils (%) (Auto) (test code = 713-8) 1.5 0.0-6.0 [facility] NorthwestBasophils (%) (Auto)2019-07-02 09:51:00* Test Item Value Reference Range Interpretation Comments Basophils (%) (Auto) (test code = 706-2) 0.2 0.0-1.0 [facility] NorthwestIM GRANULOCYTES %2019-07-02 09:51:00* Test Item Value Reference Range Interpretation Comments IM GRANULOCYTES % (test code = IM GRANULOCYTES %) 0.7 0.0- 1.0 [facility] NorthwestNeutrophils # (Auto)2019-07-02 09:51:00* Test Item Value Reference Range Interpretation Comments Neutrophils # (Auto) (test code = 751-8) 12.1 2.1-6.9 H [facility] NorthwestLymphocytes # (Auto)2019-07-02 09:51:00* Test Item Value Reference Range Interpretation Comments Lymphocytes # (Auto) (test code = 65290-9) 1.7 1.0-3.2 [facility] NorthwestMonocytes # (Auto)2019-07-02 09:51:00* Test Item Value Reference Range Interpretation Comments Monocytes # (Auto) (test code = 742-7) 2.4 0.2-0.8 H [facility] NorthwestEosinophils # (Auto)2019-07-02 09:51:00* Test Item Value Reference Range Interpretation Comments Eosinophils # (Auto) (test code = 711-2) 0.2 0.0-0.4 [facility] NorthwestBasophils # (Auto)2019-07-02 09:51:00* Test Item Value Reference Range Interpretation Comments Basophils # (Auto) (test code = 704-7) 0.0 0.0-0.1 [facility] NorthwestAbsolute Immature Granulocyte (auto 2019-07-02 09:51:00* Test Item Value Reference Range Interpretation Comments Absolute Immature Granulocyte (auto (nikita t code = Absolute Immature Granulocyte (auto) 0.12 0-0.1 H [facility] NorthwestWhite Blood Bvavj1899-38-90 09:51:00* Test Item Value Reference Range Interpretation Comments White Blood Count (test code = 6690-2) 16.54 4.8-10.8 H [facility] NorthwestRed Blood Ffepr9674-08-81 09:51:00* Test Item Value Reference Range Interpretation Comments Red Blood Count (test code = 789-8) 4.38 4.3-5.7 [facility] NorthwestHemoglobin2019-10-23 09:51:00* Test Item Value Reference Range Interpretation Comments Hemoglobin (test code = 08159-6) 11.7 14.0-18.0 L [facility] NorthwestHematocrit2019-10-23 09:51:00* Test Item Value Reference Range Interpretation Comments Hematocrit (test code = 4544-3) 36.2 38.2-49.6 L [facility] NorthwestMean Corpuscular Asttuk7563-46-11 09:51:00* Test Item Value Reference Range Interpretation Comments Mean Corpuscular Volume (test code = 787-2) 82.6 81-99 [facility] NorthwestMean Corpuscular Gvomsniwbv1172-09-54 09:51:00* Test Item Value Reference Range Interpretation Comments Mean Corpuscular Hemoglobin (test code = 785-6) 26.7 28-32 L [facility] NorthwestMean Corpuscular Hemoglobin Concent 2019-07-02 09:51:00* Test Item Value Reference Range Interpretation Comments Mean Corpuscular Hemoglobin Concent (test code = 786-4) 32.3 31-35 [facility] NorthwestRed Cell Distribution Vvnoe1492-09-65 09:51:00* Test Item Value Reference Range Interpretation Comments Red Cell Distribution Width (test code = 32851-7) 13.9 11.7 -14.4 [facility] NorthwestPlatelet Obqop5314-21-58 09:51:00* Test Item Value Reference Range Interpretation Comments Platelet Count (test code = 777-3) 226 140-360 [facility] NorthwestNeutrophils (%) (Auto)2019-07-02 09:51:00 * Test Item Value Reference Range Interpretation Comments Neutrophils (%) (Auto) (test code = 30124-9) 72.8 38.7-80.0 [facility] NorthwestLymphocytes (%) (Auto)2019-07-02 09:51:00 * Test Item Value Reference Range Interpretation Comments Lymphocytes (%) (Auto) (test code = 736-9) 10.2 18.0-39.1 L [facility] NorthwestMonocytes (%) (Auto)2019-07-02 09:51:00* Test Item Value Reference Range Interpretation Comments Monocytes (%) (Auto) (test code = 5905-5) 14.6 4.4-11.3 H [facility] NorthwestEosinophils (%) (Auto)2019-07-02 09:51:00 * Test Item Value Reference Range Interpretation Comments Eosinophils (%) (Auto) (test code = 713-8) 1.5 0.0-6.0 [facility] NorthwestBasophils (%) (Auto)2019-07-02 09:51:00* Test Item Value Reference Range Interpretation Comments Basophils (%) (Auto) (test code = 706-2) 0.2 0.0-1.0 [facility] NorthwestIM GRANULOCYTES %2019-07-02 09:51:00* Test Item Value Reference Range Interpretation Comments IM GRANULOCYTES % (test code = IM GRANULOCYTES %) 0.7 0.0- 1.0 [facility] NorthwestNeutrophils # (Auto)2019-07-02 09:51:00* Test Item Value Reference Range Interpretation Comments Neutrophils # (Auto) (test code = 751-8) 12.1 2.1-6.9 H [facility] NorthwestLymphocytes # (Auto)2019-07-02 09:51:00* Test Item Value Reference Range Interpretation Comments Lymphocytes # (Auto) (test code = 19843-6) 1.7 1.0-3.2 [facility] NorthwestMonocytes # (Auto)2019-07-02 09:51:00* Test Item Value Reference Range Interpretation Comments Monocytes # (Auto) (test code = 742-7) 2.4 0.2-0.8 H [facility] NorthwestEosinophils # (Auto)2019-07-02 09:51:00* Test Item Value Reference Range Interpretation Comments Eosinophils # (Auto) (test code = 711-2) 0.2 0.0-0.4 [facility] NorthwestBasophils # (Auto)2019-07-02 09:51:00* Test Item Value Reference Range Interpretation Comments Basophils # (Auto) (test code = 704-7) 0.0 0.0-0.1 [facility] NorthwestAbsolute Immature Granulocyte (auto 2019-07-02 09:51:00* Test Item Value Reference Range Interpretation Comments Absolute Immature Granulocyte (auto (nikita t code = Absolute Immature Granulocyte (auto) 0.12 0-0.1 H [facility] NorthwestTriglycerides Vmotw3327-61-56 08:04:00* Test Item Value Reference Range Interpretation Comments Triglycerides Level (test code = 2571-8) 55 0-149 [facility] NorthwestCholesterol Zldfz9535-75-27 08:04:00* Test Item Value Reference Range Interpretation Comments Cholesterol Level (test code = 2093-3) 114 0-199 Less than 200 mg/dL Low Qqht267 - 239 mg/dL Borderline Iycp618 m g/dl and greater High Risk [facility] NorthwestLDL Lskzxwktgjj2905-68-31 08:04:00* Test Item Value Reference Range Interpretation Comments LDL Cholesterol (test code = 2089-1) 52 60-130 L [facility] NorthwestHDL Pdiqfkjhvmv3717-78-32 08:04:00* Test Item Value Reference Range Interpretation Comments HDL Cholesterol (test code = 2085-9) 51 40-60 [facility] NorthwestCholesterol/HDL Tgqdz1947-11-96 08:04:00 * Test Item Value Reference Range Interpretation Comments Cholesterol/HDL Ratio (test code = 9830-1) 2.2 3.9-4.7 L [facility] NorthwestTriglycerides Zuipd1377-76-00 08:04:00* Test Item Value Reference Range Interpretation Comments Triglycerides Level (test code = 2571-8) 55 0-149 [facility] NorthwestCholesterol Mwoel0913-17-67 08:04:00* Test Item Value Reference Range Interpretation Comments Cholesterol Level (test code = 2093-3) 114 0-199 Less than 200 mg/dL Low Mlrt434 - 239 mg/dL Borderline Aroe805 m g/dl and greater High Risk [facility] NorthwestLDL Hhcmopzvxvo7940-61-03 08:04:00* Test Item Value Reference Range Interpretation Comments LDL Cholesterol (test code = 2089-1) 52 60-130 L [facility] NorthwestHDL Jhsxmkooiud9610-60-89 08:04:00* Test Item Value Reference Range Interpretation Comments HDL Cholesterol (test code = 2085-9) 51 40-60 [facility] NorthwestCholesterol/HDL Iaqgh4941-99-15 08:04:00 * Test Item Value Reference Range Interpretation Comments Cholesterol/HDL Ratio (test code = 9830-1) 2.2 3.9-4.7 L [facility] NorthwestHemoglobin A1c Ucngwpv1391-48-81 07:54:00 * Test Item Value Reference Range Interpretation Comments Hemoglobin A1c Percent (test code = Hemoglobin A1c Percent) 7.5 4.0-7.0 H [facility] NorthwestHemoglobin A1c Hpbwfze3812-62-37 07:54:00 * Test Item Value Reference Range Interpretation Comments Hemoglobin A1c Percent (test code = Hemoglobin A1c Percent) 7.5 4.0-7.0 H [facility]- NM BONE WHOLE CJZV3898-74-08 19:10:00 FAX: Jaime Nunez MD [phone] [place]: St: [facility] FAX: Jeanmarie Gudinocharitocam [place] [phone] Name: AMARI RINALDI [facility] : 1940 Age/S: 78/M [address] [place] [address] Blvd Unit #: [id number] Loc: Arina Singh [address] Phys: Jamie Sanchez MD Acct: [id number] Dis Date: Status: REG CLI PHONE #: [phone] Exam Date: 05/29/2019 1548 FAX #: [phone] Reason: C61 PROSTATE CANCER EXAMS: CPT CODE: [id number] NM BONE WHOLE BODY 21088 WHOLE BODY BONE SCAN: HISTORY: Prostate cancer. I nitial evaluation. No history of recent trauma or surgery. COMPARISON EXAMS: No prior imaging for comparison. No previous bone scans . No outside imaging. TECHNIQUE: Following intravenous injection of 25 mCi 99M technetium HDP, anterior and posterior whole-body images wer e obtained after 2 hour delay. In addition, multiple planar images were o btained of the pelvis and thorax in anterior, posterior and oblique projec tions. FINDINGS: Whole-body images show intense focal uptake of is otope one of the upper, right costovertebral angles, approximately at the 4th or 5th right rib. Intense focal uptake is identified in the middle th ird of the sternum, producing shine through over the thoracic spine on the posterior views. A third area of abnormal uptake is identified in the lateral aspect of one of the right ribs, probably the right 8th rib. Long bone activity is within normal limits. Uptake about the pelvis is unremarkable. Mildly increased activity is noted to the left of midl ine at the lumbosacral junction. Intense uptake is noted symmetrically in each foot, near the 1st MTP joints bilaterally. IMPRESSION: 1. 3 regions of intense, focal uptake are identified in the thorax (sternum, right rib, and right costovertebral angle) and are suspicious for metastatic lesions. 2. Arthritic accumulations in each foot at the 1st MTP joints. 3. Subtle area of increased uptake to the left of midl ine at the lumbosacral junction. This is in a region where arthritic ac tivity is common. However, given the 3 suspicious lesions in the thorax , metastatic disease to the lumbosacral spine cannot be excluded. 4. Otherwise unremarkable whole body bone scan. SL:01 PAGE 1 Signed Report (CONTINUED) FAX: Jamie Nunez MD [phone] [place]: St: REG FAX: Alphonse Gudino [phone] Name: AMARI RINALDI [facility]: 1940 Age/S: 78/M [address] [place] [address] Unit #: [id number] Loc: [place] [address] Phys: Jamie Sanchez MD Acct: [id number] Dis Date: Status: REG CLI PHONE #: [phone] Exam Da te: 05/29/2019 1546 FAX #: [phone] Reason: C6 1 PROSTATE CANCER EXAMS: CPT CODE: [id number] NM BONE WHOLE BODY 70724 <Continued> at 1910 Reported and signed by: Jay Phelps M.D. CC: Jamie Sanchez MD; Alphonse Gill Technologist: Rochelle Hernández, RT(N) CLERICAL SPECIALIST; ... Trnscrd Date/Time/By: 05/29/2019 (1909) : By: Fernie Orig Print D/T: S: 05/29/2019 (1913) PAGE 2 Signed Report CHEST 2 [id number] 12:53:00 [place] [address] Patient Name: AMARI RINALDI MR #: [id number] : 1940 Age/Sex: 78/M Req #: [id number] [facility] Physician: Ordered by: JAMIE SANCHEZ MD Report #: [id number] Location: OR Room/Bed: Procedure: [id number] DX/CHEST 2 VIEWS Exam Date: 04/01/19 Exam Time: 1205 REPORT STATUS: Signed EXAMINATION: CHEST 2 VIEWS INDICATION: Pre-operative COMPARISON: None FIN DINGS: TUBES and LINES: None. LUNGS: The lung volumes are normal. No fo kash consolidation or pulmonary edema. PLEURA: No pleural effusion or pneum othorax. HEART AND MEDIASTINUM: The cardiomediastinal silhouette is normal in size and contour. Atherosclerotic calcifications of the thoracic aorta. BONES AND SOFT TISSUES: No acute fracture or dislocation. Degenerative changes of the visualized spine. UPPER ABDOMEN: No free air under the diaphragm. Moderate hiatal hernia. IMPRESSION: No focal pneumonia or pulmonary ed leila. Moderate hiatal hernia. Signed by: Dexter Zendejas MD on 04/01/2019 12 :55 PM Dictated By: DEXTER ZENDEJAS MD [id number] Transcribed By: COOPER on 04/01/19 1255 COPY TO: JAMIE HERRERA MD
[2020-08-11] MEDS ORDERED: PROPOFOL IV EMULSION 10 MG/ML 20 ML VIAL ONE (12:29)
[2020-08-11] MEDS ORDERED: SEVOFLURANE INHAL SOLN 250 ML PEN BTL ONE (12:29)
[2020-08-11] MEDS ORDERED: DEXAMETHASONE SOD PHOS INJ 4 MG/ML VIAL ONE (12:29)
[2020-08-11] MEDS ORDERED: ONDANSETRON HCL INJ 2MG/ML 2ML 2 MG/ML VIAL ONE (12:29)
[2020-08-11] MEDS ORDERED: LIDOCAINE HCL 2% LOCAL INJ 5 ML SDV VIAL INJ ONE (12:29)
[2020-08-11] MEDS ORDERED: LIDOCAINE HCL 2% JELLY 5 ML TUBE ONE (12:29)
[2020-08-11 12:32] LABS: BASOPHILS % 0.3 % (0.0-1.0); EOSINOPHILS # (AUTO) 0.1 (0.0-0.4); EOSINOPHILS % 0.9 % (0.0-6.0); HEMATOCRIT 32.1 % (38.2-49.6); HEMOGLOBIN 10.1 g/dL (14.0-18.0); LYMPHOCYTES # (AUTO) 2.2 (1.0-3.2); LYMPHOCYTES % 23.5 % (18.0-39.1); MEAN CORPUSCULAR HEMOGLOBIN 25.9 pg (28-32); MEAN CORPUSCULAR HGB CONC 31.5 g/dL (31-35); MEAN CORPUSCULAR VOLUME 82.3 fL (81-99); MONOCYTES # (AUTO) 0.8 (0.2-0.8); MONOCYTES % 8.5 % (4.4-11.3); NEUTROPHILS # (AUTO) 6.1 (2.1-6.9); NEUTROPHILS % 66.4 % (38.7-80.0); PLATELET COUNT 255 x10e3/uL (140-360); RED CELL DISTRIBUTION WIDTH 14.3 % (11.7-14.4)
[2020-08-11] MEDS ORDERED: FENTANYL CITRATE/PF 100MCG/2 ML INJ ONE (12:35)
[2020-08-11 13:10] VITALS: BP 128/74
[2020-08-11 13:45] VITALS: BP 149/84
[2020-08-11 13:52] LABS: ANION GAP 14.4 mmol/L (8-16); BLOOD UREA NITROGEN 13 mg/dL (7-26); BUN/CREATININE RATIO 15 (6-25); CALCIUM 8.6 mg/dL (8.4-10.2); CARBON DIOXIDE 19 mmol/L (22-29); CHLORIDE 110 mmol/L (98-107); CREATININE, SERUM 0.85 mg/dL (0.72-1.25); EST GLOMERULAR FILTRATION RATE > 60 ML/MIN (60-); GLUCOSE 116 mg/dL (74-118); POTASSIUM 4.4 mmol/L (3.5-5.1); SODIUM 139 mmol/L (136-145)
[2020-08-11] MEDS: ACETAMINOPHEN/CODEINE 300MG - 30MG TAB PO PRN ×2 (14:45→20:01)
[2020-08-11] MEDS: SOD CHL 0.45%/POT CHL 20MEQ 1,000 ML IV SCH ×2 (14:52→22:32)
[2020-08-11 16:01] VITALS: BP 139/70
[2020-08-11] MEDS: DOCUSATE SODIUM 100 MG CAP PO SCH (17:01)
--- NOTE | 2020-08-11 19:30 | NUR ---
bedside shift report received from day rn. condition stable. piv patent in rt hand- site healthy. vs stable. CBI. Billings draining clear pink urine.pt request pain med. Will adm if able to get pain med.
[2020-08-11 20:00] VITALS: BP 123/71
--- NOTE | 2020-08-11 23:17 | NUR ---
RECEIVED REPORT FROM NIGHT NURSE, PATIENT IN STABLE CONDITION, WILL CONTINUE TO MONITOR.
[2020-08-12] VITALS (7 sets, daily range): BP systolic 130–161; BP diastolic 72–89
[2020-08-12] MEDS: ACETAMINOPHEN/CODEINE 300MG - 30MG TAB PO PRN ×4 (01:31→23:55)
[2020-08-12 05:01] LABS: BASOPHILS # (AUTO) 0.1 (0.0-0.1); BASOPHILS % 0.4 % (0.0-1.0); EOSINOPHILS # (AUTO) 0.6 (0.0-0.4); EOSINOPHILS % 4.2 % (0.0-6.0); HEMATOCRIT 30.7 % (38.2-49.6); HEMOGLOBIN 9.7 g/dL (14.0-18.0); LYMPHOCYTES # (AUTO) 2.2 (1.0-3.2); LYMPHOCYTES % 15.1 % (18.0-39.1); MEAN CORPUSCULAR HEMOGLOBIN 26.3 pg (28-32); MEAN CORPUSCULAR HGB CONC 31.6 g/dL (31-35); MEAN CORPUSCULAR VOLUME 83.2 fL (81-99); MONOCYTES # (AUTO) 1.6 (0.2-0.8); MONOCYTES % 11.1 % (4.4-11.3); NEUTROPHILS # (AUTO) 9.9 (2.1-6.9); NEUTROPHILS % 68.8 % (38.7-80.0); PLATELET COUNT 233 x10e3/uL (140-360); RED BLOOD COUNT 3.69 x10e6/uL (4.3-5.7); RED CELL DISTRIBUTION WIDTH 14.3 % (11.7-14.4)
[2020-08-12 05:16] LABS: ANION GAP 11.8 mmol/L (8-16); BLOOD UREA NITROGEN 12 mg/dL (7-26); BUN/CREATININE RATIO 13 (6-25); CALCIUM 8.1 mg/dL (8.4-10.2); CARBON DIOXIDE 22 mmol/L (22-29); CHLORIDE 109 mmol/L (98-107); EST GLOMERULAR FILTRATION RATE > 60 ML/MIN (60-); GLUCOSE 120 mg/dL (74-118); POTASSIUM 4.8 mmol/L (3.5-5.1); SODIUM 138 mmol/L (136-145)
[2020-08-12] MEDS: SOD CHL 0.45%/POT CHL 20MEQ 1,000 ML IV SCH ×3 (06:04→23:43)
--- NOTE | 2020-08-12 06:06 | NUR ---
H&P cc: BPH HPI: 78yoM, PCP , with BPH, s/p TURP. Now recovering; PMH: HTN, BPH, GERD, DM2, prostate cancer, erectile dysfunction, former smoker, Elevated PSA, LAD of pelvis PSHx: prostate related Allergies; see emr FH/SH: ; hx cigs Meds; see MAR ROS; no f/c/s/n/v/D/HOPPER/vision changes/cp/sob/leg pain v/s; revd PE tired appearing anicteric ns1s2 mod bs soft; DURAND no e/t skin dry flat affect a&ox3; labs/med; revd A/P: 78yoM BPH s/p TUPR H/O Prostate cancer 1.3cm Right lung nodule- metastatic? check CT this am, since this is new. Erectile dysfunction- f/u outpt GERD- ppi DM2- hba1c/lipids Former smoker- f/u outpt. HTN- cont home meds Prop: scd DIpso; f/u urology Giovany Bella MD, PhD.
[2020-08-12 06:25] LABS: CHOL/HDL RATIO 2.8 (3.9-4.7)
[2020-08-12] MEDS: PANTOPRAZOLE SOD 40 MG TABEC PO SCH (08:28)
[2020-08-12] MEDS: AMLODIPINE BESYLATE 5 MG TAB PO SCH (08:28)
[2020-08-12] MEDS: DOCUSATE SODIUM 100 MG CAP PO SCH ×2 (08:28→17:16)
[2020-08-12] MEDS: LOSARTAN POTASSIUM 25 MG TAB PO SCH (08:28)
--- NOTE | 2020-08-12 11:37 | Operative Report ---
DATE OF PROCEDURE: 08/11/2020 SURGEON: Bud Sanchez MD PREOPERATIVE DIAGNOSES: 1. Obstructive benign prostatic hyperplasia. 2. Incomplete bladder emptying. POSTOPERATIVE DIAGNOSES: 1. Obstructive benign prostatic hyperplasia. 2. Incomplete bladder emptying. OPERATIONS PERFORMED: 1. Cystourethroscopy with bilateral ureteral catheterization and retrograde ureteropyelography (separate procedure performed for the incomplete bladder emptying). 2. Interpretation of retrograde ureteropyelography, no radiologist present. 3. Supervision of fluoroscopy, no radiologist present. 4. Cystourethroscopy with transurethral resection of prostate utilizing a plasma button electrode (separate staged procedure for the obstructive benign prostatic hyperplasia). ANESTHESIA: General. COMPLICATIONS: None. CLINICAL SUMMARY: Emmanuel Rinaldi is an 79-year-old man with metastatic prostate cancer on lifelong hormone therapy. The patient has a pulmonary nodules and pending workup. The patient has obstructive BPH. He has not tolerated alpha-angelica medication due to medication side effect. He still has poor voiding function and was brought for the above procedure. He is aware of the risks of bleeding, infection, injury to adjacent structures, incontinence, impotence, retrograde ejaculation, need for additional procedures, and elected to proceed. He also understands this procedure, in no way will improve his cancer . OPERATIVE PROCEDURE IN DETAIL: Informed consent was verified. Emmanuel Rinaldi was properly identified, taken to the operating room, and placed on the cystoscopy table in supine position. Anesthesia was uneventfully begun. The patient was then carefully and gently repositioned in the dorsal lithotomy position with all pressure points were well padded. His genitalia were prepared and draped in usual sterile fashion. The cystoscope sheath with the visual obturator in place, it was atraumatically inserted into the patient's urethra; it was guided unremarkable urethra through the prostate bed, which was significant for kissing lateral lobes causing visual obstruction. The bladder exhibited grade 2 trabeculation, but there were no tumors, there were no stones, no suspicious lesions were identified. A ureteral catheter was used to cannulate each ureter and retrograde ureteral pyelograms were performed. Interpretation of retrograde ureteropyelography; contrast was instilled in retrograde fashion bilaterally. There were no tumors, no stones, and no diverticula. Unobstructed drainage was observed bilaterally fluoroscopically. The cystoscope was withdrawn. The resectoscope was atraumatically placed. The plasma button electrode was then utilized to vaporize the prostate from the bladder neck tube, but never passed the verumontanum and down the surgical capsule. Pinpoint electrocautery was utilized to achieve hemostasis. The resectoscope was withdrawn. Billings catheter was placed, it was placed on continuous irrigation. It was irrigated to and fro to ensure it worked properly. There was fairly pink efflux emerging. A belladonna and opium suppository were placed, revealing enlarged prostate. The patient was then uneventfully reversed from anesthesia and taken to recovery room in stable condition. There were no complications to the procedure. He tolerated the procedure well. Plans will be to admit the patient for routine postoperative care and of course, we will continue his lifelong hormone therapy in conjunction with lifelong urological followup. Bud Sanchez MD [place]/ORAL /[id number]
[2020-08-12] MEDS: CEFTRIAXONE SOD 1 GM/NS 50 ML 50 ML IV SCH (12:09)
--- NOTE | 2020-08-12 14:17 | Diagnostic Imaging Report ---
CT of the chest, with contrast, 08/12/2020. History: Right lung nodule. Comparison: Chest x-ray 08/11/2020. Technique: Multidetector CT scanning of the chest was performed from the level of the apices to the upper abdomen after intravenous administration of contrast. Coronal and sagittal multiplanar reformations were obtained. RADIATION DOSE: Total DLP: 575 mGy*cm Dose modulation, iterative reconstruction, and/or weight based adjustment of the mA/kV was utilized to reduce the radiation dose to as low as reasonably achievable. Discussion: Chest: The atria, ventricles, aorta, and main pulmonary artery are normal in size. Coronary artery stents are noted. Left subclavian dual-lead pacer is present. The thyroid is unremarkable. There is no evidence of axillary or mediastinal adenopathy. There is bibasilar dependent atelectasis and scattered bilateral linear scarring. Calcified granulomas and small calcified pleural plaques are present bilaterally. There is no evidence of consolidation, suspicious nodule, or pleural effusion. Limited evaluation of the upper abdomen shows normal adrenal glands. A moderate-sized hiatal hernia is noted. Bones and soft tissues: No acute abnormality. A 1.5 cm sclerotic lesion is present in the anterolateral aspect of the right seventh rib. Multiple additional sclerotic lesions are present within the thoracic spine as well as the sternum. IMPRESSION: 1. No acute or suspicious pulmonary findings. Findings of previous granulomatous disease are noted. 2. Right rib sclerotic lesion which accounts for the chest x-ray abnormality, and multiple additional sclerotic osseous lesions, concerning for osseous metastatic disease. Recommend further evaluation with nuclear medicine bone scan. Signed by: Job George on 08/12/2020 2:14 PM
[2020-08-12] MEDS: TAMSULOSIN HCL 0.4 MG CAP PO SCH (21:17)
[2020-08-12] MEDS: PHENAZOPYRIDINE HCL 100 MG TAB PO PRN (21:54)
[2020-08-13] VITALS (9 sets, daily range): BP systolic 104–150; BP diastolic 66–90
[2020-08-13 05:03] LABS: BASOPHILS % 0.2 % (0.0-1.0); EOSINOPHILS # (AUTO) 0.5 (0.0-0.4); EOSINOPHILS % 2.9 % (0.0-6.0); HEMOGLOBIN 10.2 g/dL (14.0-18.0); LYMPHOCYTES # (AUTO) 2.4 (1.0-3.2); LYMPHOCYTES % 14.2 % (18.0-39.1); MEAN CORPUSCULAR HEMOGLOBIN 27.1 pg (28-32); MEAN CORPUSCULAR HGB CONC 31.9 g/dL (31-35); MEAN CORPUSCULAR VOLUME 85.1 fL (81-99); MONOCYTES % 11.5 % (4.4-11.3); NEUTROPHILS # (AUTO) 12.1 (2.1-6.9); NEUTROPHILS % 70.8 % (38.7-80.0); PLATELET COUNT 225 x10e3/uL (140-360); RED BLOOD COUNT 3.76 x10e6/uL (4.3-5.7); RED CELL DISTRIBUTION WIDTH 14.6 % (11.7-14.4)
[2020-08-13 05:19] LABS: ANION GAP 11.3 mmol/L (8-16); BLOOD UREA NITROGEN 9 mg/dL (7-26); BUN/CREATININE RATIO 10 (6-25); CALCIUM 8.2 mg/dL (8.4-10.2); CARBON DIOXIDE 20 mmol/L (22-29); CHLORIDE 110 mmol/L (98-107); CREATININE, SERUM 0.87 mg/dL (0.72-1.25); EST GLOMERULAR FILTRATION RATE > 60 ML/MIN (60-); GLUCOSE 134 mg/dL (74-118); POTASSIUM 4.3 mmol/L (3.5-5.1); SODIUM 137 mmol/L (136-145)
--- NOTE | 2020-08-13 06:33 | NUR ---
IM- progress note O/N see below ROS; no f/c/s/n/v/D/HOPPER/vision changes/cp/sob/leg pain v/s; revd PE tired appearing anicteric ns1s2 mod bs soft; DURAND no e/t skin dry flat affect a&ox3; labs/med; revd A/P: 78yoM BPH s/p TUPR H/O Prostate cancer 1.3cm Right lung nodule- metastatic? check CT this am, since this is new. Erectile dysfunction- f/u outpt GERD- ppi DM2- hba1c/lipids Former smoker- f/u outpt. HTN- cont home meds Prop: scd DIpso; f/u urology Rib sclerotic lesions- concerning for metastatic disease; communicated with pt. He will see oncology outpt. Giovany Bella MD, PhD.
[2020-08-13] MEDS: SOD CHL 0.45%/POT CHL 20MEQ 1,000 ML IV SCH ×2 (06:38→21:04)
[2020-08-13] MEDS: DOCUSATE SODIUM 100 MG CAP PO SCH ×2 (08:23→17:24)
[2020-08-13] MEDS: PANTOPRAZOLE SOD 40 MG TABEC PO SCH (08:24)
[2020-08-13] MEDS: AMLODIPINE BESYLATE 5 MG TAB PO SCH (08:24)
[2020-08-13] MEDS: LOSARTAN POTASSIUM 25 MG TAB PO SCH (08:24)
[2020-08-13] MEDS ORDERED: ONDANSETRON HCL 4 MG ORAL DISINTEGRATING TAB PO PRN (10:45)
[2020-08-13] MEDS: PHENAZOPYRIDINE HCL 100 MG TAB PO PRN (11:13)
[2020-08-13] MEDS: CEFTRIAXONE SOD 1 GM/NS 50 ML 50 ML IV SCH (12:44)
[2020-08-13] MEDS: TRAMADOL HCL 50 MG TAB PO PRN ×2 (13:42→21:05)
[2020-08-13] MEDS: TAMSULOSIN HCL 0.4 MG CAP PO SCH (21:04)
[2020-08-14] MEDS: SOD CHL 0.45%/POT CHL 20MEQ 1,000 ML IV SCH ×2 (02:25→14:56)
[2020-08-14] MEDS: PHENAZOPYRIDINE HCL 100 MG TAB PO PRN (02:25)
[2020-08-14 04:04] VITALS: BP 140/82
[2020-08-14 06:02] LABS: BASOPHILS % 0.3 % (0.0-1.0); EOSINOPHILS # (AUTO) 0.5 (0.0-0.4); EOSINOPHILS % 3.7 % (0.0-6.0); HEMOGLOBIN 9.8 g/dL (14.0-18.0); LYMPHOCYTES # (AUTO) 2.5 (1.0-3.2); LYMPHOCYTES % 17.4 % (18.0-39.1); MEAN CORPUSCULAR HEMOGLOBIN 26.8 pg (28-32); MEAN CORPUSCULAR HGB CONC 31.6 g/dL (31-35); MEAN CORPUSCULAR VOLUME 84.9 fL (81-99); MONOCYTES # (AUTO) 1.7 (0.2-0.8); MONOCYTES % 11.5 % (4.4-11.3); NEUTROPHILS # (AUTO) 9.6 (2.1-6.9); NEUTROPHILS % 66.5 % (38.7-80.0); PLATELET COUNT 221 x10e3/uL (140-360); RED BLOOD COUNT 3.65 x10e6/uL (4.3-5.7); RED CELL DISTRIBUTION WIDTH 14.6 % (11.7-14.4)
[2020-08-14 06:24] LABS: ANION GAP 13.5 mmol/L (8-16); BLOOD UREA NITROGEN 10 mg/dL (7-26); BUN/CREATININE RATIO 12 (6-25); CALCIUM 8.4 mg/dL (8.4-10.2); CARBON DIOXIDE 20 mmol/L (22-29); CHLORIDE 109 mmol/L (98-107); CREATININE, SERUM 0.86 mg/dL (0.72-1.25); EST GLOMERULAR FILTRATION RATE > 60 ML/MIN (60-); GLUCOSE 132 mg/dL (74-118); POTASSIUM 4.5 mmol/L (3.5-5.1); SODIUM 138 mmol/L (136-145)
[2020-08-14 08:01] VITALS: BP 157/86
[2020-08-14 08:09] VITALS: BP 157/86
[2020-08-14] MEDS: DOCUSATE SODIUM 100 MG CAP PO SCH (08:28)
[2020-08-14] MEDS: CEFTRIAXONE SOD 1 GM/NS 50 ML 50 ML IV SCH (08:29)
[2020-08-14] MEDS: AMLODIPINE BESYLATE 5 MG TAB PO SCH (08:29)
[2020-08-14] MEDS: PANTOPRAZOLE SOD 40 MG TABEC PO SCH (08:29)
[2020-08-14] MEDS: LOSARTAN POTASSIUM 25 MG TAB PO SCH (08:32)
--- NOTE | 2020-08-14 09:27 | NUR ---
IM- progress note O/N see below ROS; no f/c/s/n/v/D/HOPPER/vision changes/cp/sob/leg pain v/s; revd PE tired appearing anicteric ns1s2 mod bs soft; ORIN no e/t skin dry flat affect a&ox3; labs/med; revd A/P: 78yoM BPH s/p TUPR H/O Prostate cancer 1.3cm Right lung nodule- metastatic? check CT this am, since this is new. Erectile dysfunction- f/u outpt GERD- ppi DM2- hba1c/lipids Former smoker- f/u outpt. HTN- cont home meds Prop: scd DIpso; f/u urology Rib sclerotic lesions- concerning for metastatic disease; communicated with pt. He will see oncology outpt. 12-5 control BP; orin is out Giovany Bella MD, PhD.
[2020-08-14] MEDS ORDERED: NIFEDIPINE CR 30 MG TAB PO SCH (09:30)
--- NOTE | 2020-08-14 10:25 | NUR ---
Billings catheter discontinued per physician orders at this time. Pt tolerated procedure well. We will begin serial urines.
[2020-08-14 12:24] VITALS: BP 135/86
[2020-08-14 16:25] VITALS: BP 172/87
[2020-08-14 17:07] VITALS: BP 142/70
[2020-08-14] MEDS ORDERED: TYLENOL # 31 EA PO (17:12)
[2020-08-14] MEDS ORDERED: CEF (17:14)
[2020-08-14] MEDS ORDERED: ceftin PO (17:15)
--- NOTE | 2020-08-14 17:30 | NUR ---
Pt discharged home at this time. Pt is aox4 and able to verbalize needs at time of discharge. Pt verbalized understanding of all discharge instructions and follow up appointments. Pt sent home with new prescriptions and verbalized understanding of all new prescriptions.
--- NOTE | 2020-08-15 06:16 | NUR ---
D/C summary Principal Dx: BPH s/p TUPR H/O Prostate cancer 1.3cm Right lung nodule- metastatic? check CT this am, since this is new. Rib sclerotic lesions- concerning for metastatic ds; pt admits to fractures on right ribs years ago; f/u outpt for further eval. Secondary Dx: Erectile dysfunction- f/u outpt GERD- ppi DM2- hba1c/lipids Former smoker- f/u outpt. HTN- cont home meds Prop: scd DIpso; f/u urology Rib sclerotic lesions- concerning for metastatic disease; communicated with pt. He will see oncology outpt. 12-5 control BP; sr is out d/c home stable f/u pcp 2 days and urology 1 week and oncology 1 week d/c>35mins Giovany Bella MD, PhD.
== END 2020-08-14 17:30 | disposition home or self-care (01) | DRG 713 ==
LOC: OR 08:06 → PACU V 11:42 → MED/SURG 13:10
PROVIDERS: ADMIT Internal Medicine; ATTEND Internal Medicine
PROC: 0V508ZZ Destruction of Prostate, Via Natural or Artificial Opening Endoscopic (ICD-10-PCS; principal; 2020-08-11 10:00)
PROC: BT141ZZ Fluoroscopy of Kidneys, Ureters and Bladder using Low Osmolar Contrast (ICD-10-PCS; 2020-08-11 10:00)
DX: N40.1 Benign prostatic hyperplasia with lower urinary tract symptoms (principal); C78.01 Secondary malignant neoplasm of right lung; C79.51 Secondary malignant neoplasm of bone; I10 Essential (primary) hypertension; K21.9 Gastro-esophageal reflux disease without esophagitis; Z95.5 Presence of coronary angioplasty implant and graft; Z87.891 Personal history of nicotine dependence; N39.41 Urge incontinence; R35.0 Frequency of micturition; R35.1 Nocturia; D44.10 Neoplasm of uncertain behavior of unspecified adrenal gland; E29.1 Testicular hypofunction; N28.1 Cyst of kidney, acquired; C61 Malignant neoplasm of prostate; K42.9 Umbilical hernia without obstruction or gangrene; E66.9 Obesity, unspecified; Z68.25 Body mass index [BMI] 25.0-25.9, adult; Z20.828 Contact with and (suspected) exposure to other viral communicable diseases; E11.9 Type 2 diabetes mellitus without complications
CPT/HCPCS: 36415; 71046; 71260; 74420; 80048; 80061; 82948; 83036; 83735; 85025; 93005; 96361; C1758; J0696; J1100; J1580; J2001; J2405; J3010; J7030; U0002